=== PATIENT | male | born 1970 | race African-American/Black ===

== ENCOUNTER 2016-10-23 13:18 | Inpatient (IN) | payer OTHER ==
[2016-10-23] MEDS ORDERED: ONDANSETRON 4 MG/2 ML VIAL IVP STA (13:41)
[2016-10-23] MEDS ORDERED: HYDROmorphone 1 MG/ML 1 ML SYRINGE IVP STA ×2 (13:41→16:06)
[2016-10-23] MEDS ORDERED: SODIUM CHLORIDE 0.9% 2,000 ML IV ONE ×2 (13:41→16:06)
--- NOTE | 2016-10-23 13:44 | ED ---
Abdominal Pain HPI - General Chief Complaint: Abdominal Pain Stated Complaint: Abd pain Time Seen by Provider: 10/23/16 13:18 Source: patient, RN notes reviewed Mode of arrival: EMS Limitations: no limitations - History of Present Illness Initial Comments: Is a 46-year-old male with a history of alcohol abuse and pancreatitis has to states he had the onset last night of some ear minutes abdominal pain is sharp in nature with nausea vomiting. He does admit to drinking alcohol recently. He had no diarrhea. No fevers chills or sweats. He is brought in by EMS. He was given IV fentanyl with minimal relief. He states isn't severe 10/10 pain. No other symptoms no dysuria or hematuria. He does state her throwing up all night. MD Complaint: abdominal pain - Related Data Home Medications Medication Instructions Recorded Confirmed No Known Home Medications [No 10/23/16 10/23/16 Known Home Medications] Allergies Allergy/AdvReac Type Severity Reaction Status Date / Time bupropion HCl Allergy Anaphylaxis Verified 10/23/16 14:34 [From Wellbutrin] Review of Systems ROS Statement: Those systems with pertinent positive or pertinent negative responses have been documented in the HPI. ROS Other: All systems not noted in ROS Statement are negative. Past Medical History Past Medical History: No Reported History Additional Past Medical History / Comment(s): chronic pain History of Any Multi-Drug Resistant Organisms: None Reported Past Surgical History: No Surgical Hx Reported Additional Past Surgical History / Comment(s): circumscision at age 20, reconstructive surgery on right knee Past Psychological History: Anxiety, Depression, PTSD Smoking Status: Current every day smoker Past Alcohol Use History: Abuse, Daily Past Drug Use History: None Reported General Exam - General Exam Comments Initial Comments: This is a well-developed well-nourished awake alert anxious appearing male Limitations: no limitations General appearance: alert, anxious, in distress Head exam: Present: atraumatic, normocephalic, normal inspection Eye exam: Present: normal appearance, PERRL, EOMI. Absent: scleral icterus, conjunctival injection, periorbital swelling ENT exam: Present: mucous membranes dry Neck exam: Present: normal inspection. Absent: tenderness, meningismus, lymphadenopathy Respiratory exam: Present: normal lung sounds bilaterally. Absent: respiratory distress, wheezes, rales, rhonchi, stridor Cardiovascular Exam: Present: regular rate, normal rhythm, normal heart sounds. Absent: systolic murmur, diastolic murmur, rubs, gallop, clicks GI/Abdominal exam: Present: soft, tenderness (Positive epigastric tenderness to palpation with some voluntary guarding), normal bowel sounds. Absent: distended , guarding, rebound, rigid, mass, bruit, pulsatile mass, hernia Rectal exam: Present: deferred Extremities exam: Present: normal inspection, full ROM, normal capillary refill. Absent: tenderness, pedal edema, joint swelling, calf tenderness Back exam: Present: normal inspection Neurological exam: Present: alert, oriented X3, CN II-XII intact Psychiatric exam: Present: normal affect, normal mood Skin exam: Present: warm, dry, intact, normal color. Absent: rash Course Vital Signs 10/23/16 10/23/16 10/23/16 13:19 13:57 16:05 Temperature 96.9 F L 97.5 F L Pulse Rate 98 92 107 H Respiratory 22 16 18 Rate Blood Pressure 166/106 179/106 178/114 O2 Sat by Pulse 100 99 99 Oximetry 10/23/16 17:22 Temperature 97.3 F L Pulse Rate 107 H Respiratory 18 Rate Blood Pressure 168/95 O2 Sat by Pulse 98 Oximetry - Reevaluation(s) Reevaluation #1: 10/23/16 17:28 Patient initially did not get much relief from his pain medication he received more pain medication is feeling somewhat better. Medical Decision Making - Medical Decision Making I did discuss findings with the patient. Patient be admitted for evaluation for acute pancreatitis. - Lab Data Result diagrams: 10/23/16 14:25 10/23/16 15:18 Lab Results 10/23/16 10/23/16 10/23/16 Range/Units 14:25 15:18 16:05 WBC 6.1 (3.8-10.6) k/uL RBC 5.39 (4.30-5.90) m/uL Hgb 18.1 H (13.0-17.5) gm/dL Hct 52.9 (39.0-53.0) % MCV 98.3 (80.0-100.0) fL MCH 33.6 (25.0-35.0) pg MCHC 34.1 (31.0-37.0) g/dL RDW 12.1 (11.5-15.5) % Plt Count 135 L (150-450) k/uL Neutrophils % 83 % Lymphocytes % 6 % Monocytes % 8 % Eosinophils % 1 % Basophils % 0 % Neutrophils # 5.1 (1.3-7.7) k/uL Lymphocytes # 0.4 L (1.0-4.8) k/uL Monocytes # 0.5 (0-1.0) k/uL Eosinophils # 0.1 (0-0.7) k/uL Basophils # 0.0 (0-0.2) k/uL Sodium 138 (137-145) mmol/L Potassium 4.8 (3.5-5.1) mmol/L Chloride 105 (98-107) mmol/L Carbon Dioxide 15 L (22-30) mmol/L Anion Gap 18 mmol/L BUN 12 (9-20) mg/dL Creatinine 1.03 (0.66-1.25) mg/dL Est GFR (MDRD) Af Amer >60 (>60 ml/min/1.73 sqM) Est GFR (MDRD) Non-Af >60 (>60 ml/min/1.73 sqM) Glucose 150 H (74-99) mg/dL Calcium 8.8 (8.4-10.2) mg/dL Magnesium 1.6 (1.6-2.3) mg/dL Total Bilirubin 2.2 H (0.2-1.3) mg/dL AST 63 H (17-59) U/L ALT 36 (21-72) U/L Alkaline Phosphatase 72 (38-126) U/L Total Protein 8.9 H (6.3-8.2) g/dL Albumin 5.1 H (3.5-5.0) g/dL Amylase 1089 H* (30-110) U/L Lipase 11059 H (23-300) U/L Urine Color Yellow Urine Appearance Clear (Clear) Urine pH 5.5 (5.0-8.0) Ur Specific [place] 1.009 (1.001-1.035) Urine Protein Trace H (Negative) Urine Glucose (UA) 3+ H (Negative) Urine Ketones 2+ H (Negative) Urine Blood Negative (Negative) Urine Nitrate Negative (Negative) Urine Bilirubin Negative (Negative) Urine Urobilinogen <2.0 (<2.0) mg/dL Ur Leukocyte Esterase Negative (Negative) Serum Alcohol <10 mg/dL - Radiology Data Radiology results: report reviewed (I did review the x-ray and report no acute specific findings), image reviewed Disposition Clinical Impression: Acute pancreatitis, Abdominal pain, Dehydration Disposition: ADMITTED IP TO THIS HOSP Condition: Serious
--- NOTE | 2016-10-23 14:24 | XR ---
EXAMINATION TYPE: XR KUB DATE OF EXAM ORDERED: 10/23/2016 2:21 PM HISTORY: Abdominal pain, nausea and vomiting. COMPARISON: Previous study dated 11/01/2008. FINDINGS: The abdominal gas pattern is within normal limits. There is no evidence of obstruction or free air. No unusual calcifications are seen. IMPRESSION: NO ACUTE INTRA-ABDOMINAL ABNORMALITY.
[2016-10-23 14:54] LABS: Basophils % (A) 0 %; CH 33.6; CHCM 34.4; Eosinophils # (A) 0.1 k/uL (0-0.7); Eosinophils % (A) 1 %; HCT 52.9 % (39.0-53.0); HDW 2.59; HGB 18.1 gm/dL (13.0-17.5); Luc % (Auto) 2; Lymphocytes # (A) 0.4 k/uL (1.0-4.8); Lymphocytes % (A) 6 %; MCH 33.6 pg (25.0-35.0); MCHC 34.1 g/dL (31.0-37.0); MCV 98.3 fL (80.0-100.0); Monocytes # (A) 0.5 k/uL (0-1.0); Monocytes % (A) 8 %; Neutrophils # (A) 5.1 k/uL (1.3-7.7); Neutrophils % (A) 83 %; RBC 5.39 m/uL (4.30-5.90); RDW 12.1 % (11.5-15.5); WBC 6.1 k/uL (3.8-10.6); WBC (Perox) 6.65
[2016-10-23 15:46] LABS: ALT 36 U/L (21-72); AST 63 U/L (17-59); Alcohol <10 mg/dL; Alkaline Phosphatase 72 U/L (38-126); Anion Gap 18 mmol/L; Blood Urea Nitrogen 12 mg/dL (9-20); Calcium 8.8 mg/dL (8.4-10.2); Carbon Dioxide 15 mmol/L (22-30); Chloride 105 mmol/L (98-107); Glucose 150 mg/dL (74-99); Magnesium 1.6 mg/dL (1.6-2.3); Non-African American GFR(MDRD) >60 (>60 ml/min/1.73 sqM); Sodium 138 mmol/L (137-145); Total Bilirubin 2.2 mg/dL (0.2-1.3); Total Protein 8.9 g/dL (6.3-8.2)
[2016-10-23 15:50] LABS: Amylase 1089 U/L (30-110)
[2016-10-23] MEDS ORDERED: LORazepam 2 MG/ML SYRINGE IV STA (16:06)
[2016-10-23 16:17] LABS: Appearance,Urine Clear (Clear); Bilirubin,Urine Negative (Negative); Glucose,Urine (UA) 3+ (Negative); Leukocyte Esterase,Urine Negative (Negative); Nitrite,Urine Negative (Negative); PH, Urine 5.5 (5.0-8.0); Protein,Urine Trace (Negative); Specific Gravity,Urine 1.009 (1.001-1.035); UA Billing (MACRO vs. MICRO) CHEM; Urobilinogen,Urine <2.0 mg/dL (<2.0)
[2016-10-23 16:19] LABS: Potassium 4.8 mmol/L (3.5-5.1)
[2016-10-23 16:34] LABS: Ketones,Urine 2+ (Negative)
[2016-10-23] MEDS ORDERED: NALOXONE 0.4 MG/ML 1 ML VIAL IV PRN (17:29)
[2016-10-23] MEDS ORDERED: LORazepam 2 MG/ML SYRINGE IV PRN ×2 (17:32)
[2016-10-23] MEDS ORDERED: THIAMINE 100 MG/ML 2 ML VIAL IM STA (17:32)
[2016-10-23] MEDS ORDERED: ENALAPRILAT 1.25 MG/ML 1 ML VIAL IVP STA (17:33)
--- NOTE | 2016-10-23 17:36 | ED ---
Medical Decision Making - Lab Data Result diagrams: 10/23/16 14:25 10/23/16 15:18 Lab Results 10/23/16 10/23/16 10/23/16 Range/Units 14:25 15:18 16:05 WBC 6.1 (3.8-10.6) k/uL RBC 5.39 (4.30-5.90) m/uL Hgb 18.1 H (13.0-17.5) gm/dL Hct 52.9 (39.0-53.0) % MCV 98.3 (80.0-100.0) fL MCH 33.6 (25.0-35.0) pg MCHC 34.1 (31.0-37.0) g/dL RDW 12.1 (11.5-15.5) % Plt Count 135 L (150-450) k/uL Neutrophils % 83 % Lymphocytes % 6 % Monocytes % 8 % Eosinophils % 1 % Basophils % 0 % Neutrophils # 5.1 (1.3-7.7) k/uL Lymphocytes # 0.4 L (1.0-4.8) k/uL Monocytes # 0.5 (0-1.0) k/uL Eosinophils # 0.1 (0-0.7) k/uL Basophils # 0.0 (0-0.2) k/uL Sodium 138 (137-145) mmol/L Potassium 4.8 (3.5-5.1) mmol/L Chloride 105 (98-107) mmol/L Carbon Dioxide 15 L (22-30) mmol/L Anion Gap 18 mmol/L BUN 12 (9-20) mg/dL Creatinine 1.03 (0.66-1.25) mg/dL Est GFR (MDRD) Af Amer >60 (>60 ml/min/1.73 sqM) Est GFR (MDRD) Non-Af >60 (>60 ml/min/1.73 sqM) Glucose 150 H (74-99) mg/dL Calcium 8.8 (8.4-10.2) mg/dL Magnesium 1.6 (1.6-2.3) mg/dL Total Bilirubin 2.2 H (0.2-1.3) mg/dL AST 63 H (17-59) U/L ALT 36 (21-72) U/L Alkaline Phosphatase 72 (38-126) U/L Total Protein 8.9 H (6.3-8.2) g/dL Albumin 5.1 H (3.5-5.0) g/dL Amylase 1089 H* (30-110) U/L Lipase 12110 H (23-300) U/L Urine Color Yellow Urine Appearance Clear (Clear) Urine pH 5.5 (5.0-8.0) Ur Specific [place] 1.009 (1.001-1.035) Urine Protein Trace H (Negative) Urine Glucose (UA) 3+ H (Negative) Urine Ketones 2+ H (Negative) Urine Blood Negative (Negative) Urine Nitrate Negative (Negative) Urine Bilirubin Negative (Negative) Urine Urobilinogen <2.0 (<2.0) mg/dL Ur Leukocyte Esterase Negative (Negative) Serum Alcohol <10 mg/dL Disposition Clinical Impression: Acute pancreatitis, Abdominal pain, Dehydration, Hypertension Disposition: ADMITTED IP TO THIS [facility] Condition: Serious Referrals: None,Stated [Primary Care Provider] - 1-2 days
[2016-10-23] MEDS: THIAMINE 100 MG TAB PO SCH (18:16)
[2016-10-23] MEDS: LORazepam 2 MG/ML SYRINGE IV PRN ×2 (18:23→20:48)
[2016-10-23] MEDS: HYDROmorphone 1 MG/ML 1 ML SYRINGE IV PRN ×2 (18:23→22:04)
[2016-10-23] MEDS: SODIUM CHLORIDE 0.9% 1,000 ML IV SCH (18:23)
[2016-10-23] MEDS ORDERED: hydrALAZINE HCL 20 MG/ML 1 ML VIAL IVP PRN (18:35)
[2016-10-23] MEDS: amLODIPine 10 MG TAB PO SCH (18:45)
[2016-10-23] MEDS: METOPROLOL TARTRATE 50 MG TAB PO SCH (20:48)
[2016-10-24] MEDS: HYDROmorphone 1 MG/ML 1 ML SYRINGE IV PRN ×8 (01:04→23:16)
[2016-10-24] MEDS: SODIUM CHLORIDE 0.9% 1,000 ML IV SCH ×3 (01:20→17:13)
[2016-10-24 03:05] LABS: Glucose,Whole Blood 130 mg/dL (75-99)
[2016-10-24] MEDS: hydrALAZINE HCL 20 MG/ML 1 ML VIAL IVP PRN (03:52)
[2016-10-24 07:56] LABS: Glucose,Whole Blood 129 mg/dL (75-99)
[2016-10-24] MEDS: LORazepam 2 MG/ML SYRINGE IV PRN (08:07)
[2016-10-24] MEDS: amLODIPine 10 MG TAB PO SCH (08:07)
[2016-10-24] MEDS: METOPROLOL TARTRATE 50 MG TAB PO SCH ×2 (08:07→20:09)
[2016-10-24 08:37] LABS: CH 33.8; CHCM 34.3; HCT 52.6 % (39.0-53.0); HDW 2.55; HGB 17.7 gm/dL (13.0-17.5); MCH 33.2 pg (25.0-35.0); MCHC 33.5 g/dL (31.0-37.0); MCV 98.9 fL (80.0-100.0); Mean Platelet Volume 9.5; RBC 5.32 m/uL (4.30-5.90); RDW 12.2 % (11.5-15.5); WBC 8.2 k/uL (3.8-10.6)
[2016-10-24 09:08] LABS: ALT 42 U/L (21-72); AST 43 U/L (17-59); Alkaline Phosphatase 59 U/L (38-126); Anion Gap 15 mmol/L; Blood Urea Nitrogen 14 mg/dL (9-20); Calcium 8.8 mg/dL (8.4-10.2); Carbon Dioxide 18 mmol/L (22-30); Chloride 106 mmol/L (98-107); Glucose 136 mg/dL (74-99); Non-African American GFR(MDRD) >60 (>60 ml/min/1.73 sqM); Potassium 4.2 mmol/L (3.5-5.1); Sodium 139 mmol/L (137-145); Total Bilirubin 1.3 mg/dL (0.2-1.3); Total Protein 7.2 g/dL (6.3-8.2)
[2016-10-24 11:00] LABS: Amylase 871 U/L (30-110)
[2016-10-24] MEDS ORDERED: PANTOPRAZOLE 40 MG/10 ML VIAL IVP SCH (12:00)
--- NOTE | 2016-10-24 12:37 | US ---
EXAMINATION TYPE: US gallbladder DATE OF EXAM: 10/24/2016 11:39 AM COMPARISON: 2012 in PACS CLINICAL HISTORY: US. ABD pain, elevated LFT's EXAM MEASUREMENTS: Liver Length: 14.1 cm Gallbladder Wall: 0.5 cm CBD: 0.4 cm Right Kidney: 12.2 x 6.0 x 5.5 cm ANATOMY: Findings: Pancreas: Obscured by bowel gas Liver: Heterogeneous with hyperechoic area at [place]= 3.5 x 2.0 x 2.9 cm Gallbladder: Lumen clear, possible thickened wall with fluid Evidence for sonographic Laguna's sign: No CBD: wnl Right Kidney: wnl Incidental finding of small amount of free fluid scattered throughout ABD IMPRESSION: 1. Ascites. 2. Fatty liver. Normal Values: Liver Length: < 16cm wnl, 17-18cm upper limits, >18cm enlarged Renal Length = 9 - 12cm GB Wall: < 0.3cm CBD: < 0.6cm or < 1.0cm post cholecystectomy
[2016-10-24 13:15] LABS: Hemoglobin A1C 4.9 % (4.2-6.1)
--- NOTE | 2016-10-24 13:54 | HP ---
DATE OF ADMISSION: Patient is a 46-year-old gentleman with alcohol abuse and pancreatitis, came in with symptoms of epigastric abdominal pain, sharp in nature, nonradiating, along with nausea, vomiting, multiple episodes patient does drink every day. He only admits to drinking two 24 ounces of beer, but I believe he drinks more than that. Patient is complaining of 10/10 pain and patient was found to have elevated pancreatic enzymes of 11,998 along with elevated amylase. Patient is admitted for pancreatitis and I started him on Protonix, continuing with IV fluids and patient so far did not have any significant withdrawals as patient is already receiving Ativan and patient was not known to have withdrawals in the past either and patient is tachycardic, probably because of the pain and early stages of withdrawal of, I believe and patient was started on metoprolol. Because of elevated blood pressures, patient was empirically started on amlodipine and IV hydralazine on a p.r.n. basis, which I discontinued, which causes more harm than help. If at all needed, will start him on clonidine or increase the dose of metoprolol as these are good medications for tachycardia and blood pressure in alcohol withdrawal and TSH will be obtained as well. Patient denied any fever, chills. Patient denied any diarrhea, blood in the stools. REVIEW OF SYSTEMS: CONSTITUTIONAL: No fever, no malaise, no fatigue. HEENT: No recent visual problems or hearing problems. Denied any sore throat. CARDIOVASCULAR: No chest pain, orthopnea, PND, no palpitations, no syncope. PULMONARY: No shortness of breath, no cough, no hemoptysis. GASTROINTESTINAL: As described in HPI. NEUROLOGICAL: No headaches, no weakness, no numbness. HEMATOLOGICAL: Denies any bleeding or petechiae. GENITOURINARY: Denies any burning micturition, frequency, or urgency. MUSCULOSKELETAL/RHEUMATOLOGICAL: Denies any joint pain, swelling, or any muscle pain. ENDOCRINE: Denies any polyuria or polydipsia. The rest of the 14 point review of systems is negative. HOME MEDICATIONS: None. ALLERGIES: Allergic to BUPROPION. PAST MEDICAL HISTORY: Significant for apparently hypertension, chronic pain, anxiety, depression, PTSD. Patient does smoke a pack per day. Alcohol abuse history as mentioned above. Denied any drug abuse. PHYSICAL EXAMINATION: VITAL SIGNS: Temperature 97.2, pulse of 120, respiratory rate at 20, blood pressure is 150/98, saturating at 97% on room air. CARDIOVASCULAR: S1 and S2 present. Patient is tachycardic, sinus tachycardia. ABDOMINAL EXAMINATION: Epigastric abdominal tenderness. No rebound or rigidity. Patient's abdomen is distended, mostly tympanic, probably because of constipation and patient will benefit from MiraLax once he is able to take p.o. medications. At this point of time, patient is n.p.o. GENERAL: The patient is alert and oriented x3, not in any acute distress. Well developed, well nourished. HEENT: Pupils are round and equally reacting to light. EOMI. No scleral icterus. No conjunctival pallor. Normocephalic, atraumatic. No pharyngeal erythema. No thyromegaly. PULMONARY: Chest is clear to auscultation, no wheezing or crackles. MUSCULOSKELETAL: No joint swelling or deformity. EXTREMITIES: No cyanosis, clubbing, or pedal edema. NEUROLOGICAL: Gross neurological examination did not reveal any focal deficits. SKIN: No rashes. LABORATORY DATA: CBC, CMP are abnormal for increased amylase and lipase as mentioned above and urine 3+ glucose and 2+ ketones. I will obtain a hemoglobin A1c. I also will obtain an upper abdominal ultrasound to rule out any gallstones. Patient has alcoholic pancreatitis. ASSESSMENT AND PLAN: 1. Alcoholic pancreatitis. IV fluids, n.p.o. as mentioned above and if his symptoms improved tomorrow, patient can be started on oral clear liquid diet. IV fluids will be continued at present rate. 2. Alcoholic gastritis for which patient is on Protonix. 3. Alcohol abuse and alcohol withdrawal. Patient will be Ativan [facility] protocol. Will watch for withdrawals and tachycardia. Patient's tachycardia is secondary to that. 4. Sinus tachycardia, probably due to above-mentioned reasons, that is partly because of alcohol withdrawal as well as pain and, which are being treated at this point of time. Will also obtain TSH although my suspicion is low for pulmonary embolism. 5. Nicotine abuse counseling was provided. 6. Anxiety disorder. 7. Extensive counseling regarding alcohol abuse was provided. Patient may have mild alcoholic hepatitis as well, which is expected to improve with quitting of alcohol. 8. Elevated blood pressures due to alcohol withdrawal. Management as mentioned above.
[2016-10-24] MEDS: THIAMINE 100 MG TAB PO SCH ×2 (15:15→16:44)
[2016-10-24] MEDS: PANTOPRAZOLE 40 MG/10 ML VIAL IVP SCH ×2 (20:09→21:41)
[2016-10-25] MEDS: SODIUM CHLORIDE 0.9% 1,000 ML IV SCH ×3 (01:42→15:35)
[2016-10-25] MEDS: HYDROmorphone 1 MG/ML 1 ML SYRINGE IV PRN ×3 (02:01→11:09)
[2016-10-25] MEDS: LORazepam 2 MG/ML SYRINGE IV PRN ×5 (03:04→23:58)
[2016-10-25] MEDS: PANTOPRAZOLE 40 MG/10 ML VIAL IVP SCH ×2 (08:56→20:05)
[2016-10-25] MEDS: METOPROLOL TARTRATE 50 MG TAB PO SCH ×2 (08:56→20:11)
[2016-10-25 09:12] LABS: CH 33.7; CHCM 33.7; HCT 46.8 % (39.0-53.0); HDW 2.41; HGB 15.1 gm/dL (13.0-17.5); MCH 32.6 pg (25.0-35.0); MCHC 32.4 g/dL (31.0-37.0); MCV 100.6 fL (80.0-100.0); Mean Platelet Volume 10.3; RBC 4.65 m/uL (4.30-5.90); RDW 12.3 % (11.5-15.5); WBC 4.4 k/uL (3.8-10.6)
[2016-10-25 09:35] LABS: ALT 33 U/L (21-72); AST 28 U/L (17-59); Alkaline Phosphatase 56 U/L (38-126); Anion Gap 15 mmol/L; Blood Urea Nitrogen 26 mg/dL (9-20); Carbon Dioxide 21 mmol/L (22-30); Chloride 106 mmol/L (98-107); Glucose 123 mg/dL (74-99); Non-African American GFR(MDRD) >60 (>60 ml/min/1.73 sqM); Sodium 142 mmol/L (137-145); Total Bilirubin 2.3 mg/dL (0.2-1.3); Total Protein 6.9 g/dL (6.3-8.2)
[2016-10-25] MEDS: THIAMINE 100 MG TAB PO SCH ×2 (11:11→17:09)
[2016-10-25] MEDS: hydrALAZINE HCL 20 MG/ML 1 ML VIAL IVP PRN (11:11)
[2016-10-25 11:41] VITALS: BMI 30.8
[2016-10-25] MEDS: HYDROcodone/APAP 7.5-325MG 1 EACH TAB PO PRN ×2 (14:11→20:06)
--- NOTE | 2016-10-25 21:17 | PN ---
A 46-year-old admitted for alcoholic pancreatitis. Patient's symptoms did improve minimally. I will switch him to oral [place] and the patient's lipase is 3300 now and the patient will be started on clear liquid diet. We will see if he tolerates this. If he tolerates, the patient's diet will be advanced. Otherwise, he will be made n.p.o. again. The patient continues to be tachycardic. Increased the dose of metoprolol to 75 b.i.d. TSH is essentially within normal limits. REVIEW OF SYSTEMS: CARDIOVASCULAR: No chest pain, no orthopnea, no PND, no palpitations. PULMONARY: Denied any shortness of breath. No cough or hemoptysis. GASTROINTESTINAL: Continued to have minimal abdominal pain, improved compared to yesterday. NEUROLOGIC: No headaches, no weakness, no numbness. Medications were reviewed and medication changes are as mentioned above. PHYSICAL EXAMINATION: VITAL SIGNS: Temperature afebrile, pulse of around 112, respiratory rate of 16, blood pressure is 140/70, saturating at 97% on room air. GENERAL: The patient is alert and oriented x3, not in any acute distress. Well developed, well nourished. HEENT: Pupils are round and equally reacting to light. EOMI. No scleral icterus. No conjunctival pallor. Normocephalic, atraumatic. No pharyngeal erythema. No thyromegaly. CARDIOVASCULAR: S1 and S2 present. No murmurs, rubs, or gallops. PULMONARY: Chest is clear to auscultation, no wheezing or crackles. ABDOMEN: Soft, nontender, nondistended, normoactive bowel sounds. No palpable organomegaly. MUSCULOSKELETAL: No joint swelling or deformity. EXTREMITIES: No cyanosis, clubbing, or pedal edema. NEUROLOGICAL: Gross neurological examination did not reveal any focal deficits. SKIN: No rashes. FINAL DIAGNOSES: 1. Alcoholic pancreatitis. Continue with IV fluids and start him on clear liquid diet, switch his medications to clear liquid diet. 2. Tachycardia, probable related to alcohol withdrawal. I do not the patient has ( ), which is essentially within normal limits and metoprolol dose has been increased to 75 twice a day. 3. Alcohol abuse with alcohol withdrawal. Patient does not have significant withdrawals. Continue with Ativan, [facility] Withdrawal Assessment for Alcohol protocol. 4. Nicotine abuse counseling was provided. 5. Anxiety disorder.
[2016-10-25] MEDS: ONDANSETRON 4 MG/2 ML VIAL IVP PRN (21:29)
[2016-10-26] MEDS: SODIUM CHLORIDE 0.9% 1,000 ML IV SCH ×3 (01:53→14:56)
[2016-10-26] MEDS: ONDANSETRON 4 MG/2 ML VIAL IVP PRN (07:42)
[2016-10-26] MEDS: HYDROcodone/APAP 7.5-325MG 1 EACH TAB PO PRN ×3 (07:49→21:26)
[2016-10-26] MEDS: PANTOPRAZOLE 40 MG/10 ML VIAL IVP SCH ×2 (07:49→21:26)
[2016-10-26] MEDS: METOPROLOL TARTRATE 50 MG TAB PO SCH ×2 (07:49→21:25)
[2016-10-26] MEDS: hydrALAZINE HCL 20 MG/ML 1 ML VIAL IVP PRN ×2 (08:51→14:55)
[2016-10-26] MEDS: THIAMINE 100 MG TAB PO SCH ×2 (13:24→17:54)
[2016-10-26] MEDS ORDERED: RX INFO: IV CONTRAST WAS GIVEN 1 EACH MISC MISCELLANE PRN (15:56)
--- NOTE | 2016-10-26 17:08 | PN ---
Patient is admitted for alcohol pancreatitis. Symptoms are improving. Patient will advance the diet today and patient is still tachycardic. I will obtain a d-dimer. If it is elevated I will go ahead and get a CT of the chest to rule out any pulmonary embolism. REVIEW OF SYSTEMS: CARDIOVASCULAR: No chest pain, no orthopnea, no PND, no palpitations. PULMONARY: Denied any shortness of breath. No cough or hemoptysis. GASTROINTESTINAL: No diarrhea, nausea or vomiting. No abdominal pain. Normoactive bowel sounds. NEUROLOGIC: No headaches, no weakness, no numbness. Medications are reviewed. PHYSICAL EXAMINATION: VITAL SIGNS: Temperature 97.7, pulse of 123, respiratory rate of 18, blood pressure is 144/110, saturating at 99% on room air. GENERAL: The patient is alert and oriented x3, not in any acute distress. Well developed, well nourished. HEENT: Pupils are round and equally reacting to light. EOMI. No scleral icterus. No conjunctival pallor. Normocephalic, atraumatic. No pharyngeal erythema. No thyromegaly. CARDIOVASCULAR: S1 and S2 present. Patient continues to be tachycardic. No murmurs, rubs, or gallops are appreciated. PULMONARY: Chest is clear to auscultation, no wheezing or crackles. ABDOMEN: Soft, nontender, nondistended, normoactive bowel sounds. No palpable organomegaly. MUSCULOSKELETAL: No joint swelling or deformity. EXTREMITIES: No cyanosis, clubbing, or pedal edema. NEUROLOGICAL: Gross neurological examination did not reveal any focal deficits. SKIN: No rashes. LABORATORY DATA: CBC, CMP are abnormal for mildly elevated creatinine of 1.08, BUN of 26. Lipase is 3174. ASSESSMENT AND PLAN: 1. Alcoholic pancreatitis, improving at this point of time. Patient's diet will be advanced. 2. Tachycardia due to the above mentioned reasons. TSH is essentially within normal limits. 3. Alcohol abuse and alcohol withdrawal. Withdrawals are improving. Patient is not requiring Ativan frequently. 4. Nicotine abuse. 5. Anxiety disorder.
--- NOTE | 2016-10-26 18:16 | CT ---
EXAMINATION TYPE: CT chest angio for PE DATE OF EXAM: 10/26/2016 5:08 PM COMPARISON: NONE HISTORY: Patient poor historian. Patient has elevated D-Dimer lab results. CT DLP: 228.6 mGycm Automated exposure control for dose reduction was used. CONTRAST: CTA Chest for pulmonary embolism performed with with IV Contrast, patient injected with 100 mL of Omn ipaque 350. MIP images are created on CT scanner and reviewed. FINDINGS: LUNGS: Exam is suboptimal as there is significant respiratory motion artifact limiting evaluation for subcentimeter nodularity. There is small left pleural effusion. There is tiny right pleural effusion . There is associated compressive atelectasis in both lung bases. More focal consolidation and/or ate lectasis in the lingula is present inferiorly. Additional consolidation in the left lower lobe is dif ficult to exclude versus atelectatic change. No pneumothorax is present bilaterally. MEDIASTINUM: There is suboptimal bolus with heterogeneity, there is no large central pulmonary emboli sm, smaller segmental and subsegmental PE cannot be excluded on this exam. There are prominent borde rline lymph nodes in the prevascular space. No pericardial effusion is seen. Heart size is upper li mits of normal. There is mild to moderate left ventricular dilatation noted. OTHER: There is small amount of ascites along superior lateral margin of the liver. Small degree of bilateral gynecomastia is noted. IMPRESSION: 1. Suboptimal study without large central pulmonary embolism, smaller segmental and subsegmental PE c annot be excluded on this exam. 2. There are small left greater than right pleural effusions. There is associated atelectatic change. There is slightly more prominent atelectasis and/or consolidation in the lingula and left lower lobe in which multifocal infectious process cannot be noted. Clinical correlation is advised.
[2016-10-26] MEDS ORDERED: HEPARIN SODIUM,PORCINE 10,000 UNIT/ML 1 ML VIAL IV ONE (22:48)
[2016-10-26] MEDS ORDERED: HEPARIN SODIUM,PORCINE 5,000 UNIT/ML 1 ML VIAL IV PRN (22:48)
[2016-10-27 00:17] LABS: Aty Lym Flag Slight; CH 33.9; CHCM 33.5; HCT 42.4 % (39.0-53.0); HDW 2.47; HGB 14.2 gm/dL (13.0-17.5); MCH 34.1 pg (25.0-35.0); MCHC 33.5 g/dL (31.0-37.0); MCV 101.6 fL (80.0-100.0); Mean Platelet Volume 8.6; RBC 4.17 m/uL (4.30-5.90); RDW 12.1 % (11.5-15.5); WBC 2.1 k/uL (3.8-10.6); WBC (Perox) 2.06
[2016-10-27 00:40] LABS: Add Differential Manual Differential
[2016-10-27 00:44] LABS: Manual Review Performed; Nucleated Red Blood Cells 0 /100 WBC (0-0); Total Cells Counted 100
[2016-10-27] MEDS: HEPARIN SODIUM,PORCINE/D5W PMX 25,000 UNIT in DEXTROSE/WATER 1 500ML.BAG IV SCH ×2 (01:06→14:07)
[2016-10-27] MEDS: SODIUM CHLORIDE 0.9% 1,000 ML IV SCH ×2 (05:31→17:36)
[2016-10-27] MEDS: PANTOPRAZOLE 40 MG/10 ML VIAL IVP SCH ×2 (08:19→20:44)
[2016-10-27] MEDS: METOPROLOL TARTRATE 50 MG TAB PO SCH ×2 (08:19→20:45)
[2016-10-27] MEDS: HYDROcodone/APAP 7.5-325MG 1 EACH TAB PO PRN ×3 (08:22→20:45)
[2016-10-27 08:29] LABS: CH 33.8; CHCM 34.1; HCT 42.5 % (39.0-53.0); HDW 2.54; MCHC 33.1 g/dL (31.0-37.0); MCV 99.8 fL (80.0-100.0); RBC 4.26 m/uL (4.30-5.90); WBC 2.8 k/uL (3.8-10.6)
[2016-10-27 08:39] LABS: Anion Gap 12 mmol/L; Calcium 8.8 mg/dL (8.4-10.2); Carbon Dioxide 20 mmol/L (22-30); Chloride 104 mmol/L (98-107); Glucose 108 mg/dL (74-99); Non-African American GFR(MDRD) >60 (>60 ml/min/1.73 sqM); Sodium 136 mmol/L (137-145)
[2016-10-27 08:42] LABS: Blood Urea Nitrogen 14 mg/dL (9-20); Potassium 3.5 mmol/L (3.5-5.1)
[2016-10-27] MEDS: THIAMINE 100 MG TAB PO SCH ×2 (13:05→17:36)
[2016-10-27] MEDS ORDERED: LACTULOSE 20 GM/30 ML CUP PO ONE (14:03)
--- NOTE | 2016-10-27 14:35 | P.CNPUL ---
History of Present Illness Consult date: 10/27/16 Reason for consult: pleural effusion, abnormal CXR/CT Chief complaint: Abnormal chest x-ray History of present illness: This is a 46-year-old black male who was admitted on October 23. He has a history of chronic alcohol abuse and came into the emergency department with epigastric abdominal pain and was diagnosed as having acute pancreatitis. Most of the history today is obtained from the medical records. He is not a row good historian but is able to give me some history. Currently the patient apparently had a recent chest x-ray or CAT scan which showed some abnormalities and I was consulted for that reason. His primary complaints included epigastric pain. He really denies any other complaints of any chest discomfort shortness breath difficulty breathing coughing wheezing phlegm production. The chest x-ray and CAT scan suggested possible infiltrates at the lung bases left greater than right and also left greater than right pleural effusions. These may be sympathetic changes secondary to the acute pancreatitis. Again the patient really does not have much in the way of any or any pulmonary complaints. His past medical history is positive for essential hypertension chronic pain syndrome anxiety/depression improved posttraumatic stress disorder. He does abuse alcohol as mentioned above and does smoke about a pack a day. Denies any illicit drug use. Review of Systems 12 point review of system is essentially only positive for epigastric discomfort which is improved since he been here in the hospital. He denies any pulmonary complaints. Cough phlegm production shortness of breath or any other complaints for that matter. When I first went into the room he was lying flat in bed. Not wearing any oxygen therapy. No respiratory issues at all. Past Medical History Past Medical History: No Reported History, Hypertension Additional Past Medical History / Comment(s): chronic pain History of Any Multi-Drug Resistant Organisms: None Reported Past Surgical History: No Surgical Hx Reported Additional Past Surgical History / Comment(s): circumscision at age 20, reconstructive surgery on right knee Past Psychological History: Anxiety, Depression, PTSD Smoking Status: Current every day smoker Past Alcohol Use History: Abuse, Daily Past Drug Use History: None Reported Medications and Allergies Home Medications Medication Instructions Recorded Confirmed Type No Known Home Medications [No 10/23/16 10/23/16 History Known Home Medications] Allergies Allergy/AdvReac Type Severity Reaction Status Date / Time bupropion HCl Allergy Anaphylaxis Verified 10/23/16 14:34 [From Wellbutrin] Physical Exam Osteopathic Statement: *. No significant issues noted on an osteopathic structural exam other than those noted in the History and Physical/Consult. Vitals: Vital Signs Temp Pulse Pulse Resp BP Pulse Ox 10/27/16 10:51 108 H 159/100 10/27/16 07:00 98.7 F 112 H 18 158/113 97 10/27/16 03:02 110 H 148/92 10/26/16 23:00 99.6 F 107 H 18 152/89 95 10/26/16 21:24 130 H 168/101 10/26/16 17:31 144/96 10/26/16 15:00 96.8 F L 114 H 20 158/101 98 Intake and Output 10/26/16 10/27/16 10/27/16 22:59 06:59 14:59 Output Total 475 650 Balance -475 -650 Output: Urine 475 650 Other: Voiding Method Urinal No acute distress, oriented 3. Membranes are moist. Supple. Full range of motion. No adenopathy. Cardiovascular examination reveals regular rhythm rate. S1-S2 normal. Scattered mild basilar rhonchi. No dullness. No wheezes. No crackles. Breath sounds are otherwise clear. Abdomen is soft. There is some mild epigastric tenderness. Extremities are intact. Results - Laboratory Findings CBC and BMP: 10/27/16 08:13 10/27/16 08:13 PT/INR, D-dimer D-Dimer 27.73 mg/L FEU (<0.60) H 10/26/16 15:02 Abnormal lab findings: Abnormal Labs 10/24/16 10/24/16 10/24/16 03:02 07:54 08:24 WBC RBC Hgb MCV Plt Count Neutrophils # (Manual) Lymphocytes # (Manual) APTT D-Dimer Sodium Carbon Dioxide 18 L BUN Glucose 136 H POC Glucose (mg/dL) 130 H 129 H Plasma Lactic Acid Duran Total Bilirubin Amylase Lipase 10/24/16 10/24/16 10/25/16 08:24 08:24 08:25 WBC RBC Hgb 17.7 H MCV 100.6 H Plt Count 137 L 103 L Neutrophils # (Manual) Lymphocytes # (Manual) APTT D-Dimer Sodium Carbon Dioxide BUN Glucose POC Glucose (mg/dL) Plasma Lactic Acid Duran Total Bilirubin Amylase 871 H* Lipase 8756 H 10/25/16 10/26/16 10/26/16 08:25 15:02 23:56 WBC 2.1 L RBC 4.17 L Hgb MCV 101.6 H Plt Count 116 L Neutrophils # (Manual) 1.1 L Lymphocytes # (Manual) 0.5 L APTT D-Dimer 27.73 H Sodium Carbon Dioxide 21 L BUN 26 H Glucose 123 H POC Glucose (mg/dL) Plasma Lactic Acid Duran Total Bilirubin 2.3 H Amylase Lipase 3174 H 10/27/16 10/27/16 10/27/16 08:13 08:13 08:13 WBC 2.8 L RBC 4.26 L Hgb MCV Plt Count 133 L Neutrophils # (Manual) Lymphocytes # (Manual) APTT 55.1 H D-Dimer Sodium 136 L Carbon Dioxide 20 L BUN Glucose 108 H POC Glucose (mg/dL) Plasma Lactic Acid Duran Total Bilirubin Amylase Lipase 762 H 10/27/16 08:13 WBC RBC Hgb MCV Plt Count Neutrophils # (Manual) Lymphocytes # (Manual) APTT D-Dimer Sodium Carbon Dioxide BUN Glucose POC Glucose (mg/dL) Plasma Lactic Acid Duran 0.6 L Total Bilirubin Amylase Lipase - Diagnostic Findings Chest x-ray: image reviewed CT scan - chest: image reviewed (X-rays and other scans are evaluated.) Assessment and Plan (1) Pleural effusion Status: Acute (2) Mild basilar atelectasis of both lungs Status: Acute (3) Abdominal pain Status: Acute (4) Acute pancreatitis Status: Acute (5) Dehydration Status: Acute (6) Hypertension Status: Acute Plan: Plan At this time the patient is not really having any pulmonary complaints. I don' t suspect he has pneumonia. I suspect because of the intra-abdominal process, i.e. acute pancreatitis, the patient has some bibasilar atelectasis left greater than right and bibasilar pleural effusions, left greater than right. This is typically a sympathetic effusion caused by the acute pancreatitis. As a pancreatitis resolves, the pulmonary changes should resolve as well. We'll continue to follow. No additional recommendations are made. Time with Patient: Greater than 30
--- NOTE | 2016-10-27 15:03 | XR ---
EXAMINATION TYPE: XR abdomen complete w decub DATE OF EXAM: 10/27/2016 2:39 PM COMPARISON: 10/23/2016 HISTORY: Abdominal pain and constipation TECHNIQUE: Single view of the chest and 2 views of the abdomen are submitted. FINDINGS: There are multiple dilated air and fluid-filled loops of small bowel in the midabdomen. There is some gas in the right colon and transverse colon. I see no evidence of pneumoperitoneum. There is slight blunting of the costophrenic angles. CONCLUSION: Compared to last exam there is no multiple loops of dilated small bowel suggestive of a mechanical sm all bowel obstruction or severe ileus. There is some thumbprinting that suggests small bowel edema. F ollow-up is recommended.
[2016-10-27] MEDS: HEPARIN SODIUM,PORCINE 5,000 UNIT/ML 1 ML VIAL SQ SCH (23:49)
[2016-10-28] MEDS: SODIUM CHLORIDE 0.9% 1,000 ML IV SCH ×2 (05:13→20:40)
[2016-10-28] MEDS: HEPARIN SODIUM,PORCINE 5,000 UNIT/ML 1 ML VIAL SQ SCH ×2 (08:12→16:05)
[2016-10-28] MEDS: METOPROLOL TARTRATE 50 MG TAB PO SCH (08:12)
[2016-10-28] MEDS: PANTOPRAZOLE 40 MG/10 ML VIAL IVP SCH ×2 (08:12→20:40)
[2016-10-28] MEDS: HYDROcodone/APAP 7.5-325MG 1 EACH TAB PO PRN ×3 (08:17→20:40)
[2016-10-28] MEDS: THIAMINE 100 MG TAB PO SCH ×2 (12:29→16:05)
--- NOTE | 2016-10-28 12:36 | PN ---
Patient is admitted with alcoholic pancreatitis which has improved but patient has abdominal distension, because of which I obtained an abdominal x-ray which did show significant ileus. Patient has uncontrolled tachycardia in spite of high dose of metoprolol. We did a CT of the chest to rule out pulmonary embolism. I did not show any evidence of pulmonary embolism and because of that, I discontinued heparin. I believe Pulmonary was consulted by the on-call covering physician. Patient does have minimal left-sided pleural effusion which is related to pancreatitis first day and patient will need to remain n.p.o. because of the ileus and if the patient become nauseous, may need NG tube at that time for bowel ( ) and bowel decompression and will use rectal Docusate for constipation and ileus. REVIEW OF SYSTEMS: CARDIOVASCULAR: No chest pain, no orthopnea, no PND, no palpitations. PULMONARY: Denied any shortness of breath. No cough or hemoptysis. GASTROINTESTINAL: As described in HPI. NEUROLOGIC: No headaches, no weakness, no numbness. Medications were reviewed. PHYSICAL EXAMINATION: VITAL SIGNS: Temperature 98.7, pulse of 103, respiratory rate of 18, blood pressure is 160/102, saturating at 96% on room air. ABDOMINAL EXAMINATION: Abdomen is significantly distended, no rebound or rigidity. Patient's abdomen is tympanic secondary to constipation, ileus. GENERAL: The patient is alert and oriented x3, not in any acute distress. Well developed, well nourished. HEENT: Pupils are round and equally reacting to light. EOMI. No scleral icterus. No conjunctival pallor. Normocephalic, atraumatic. No pharyngeal erythema. No thyromegaly. CARDIOVASCULAR: S1 and S2 present. No murmurs, rubs, or gallops. PULMONARY: Chest is clear to auscultation, no wheezing or crackles. MUSCULOSKELETAL: No joint swelling or deformity. EXTREMITIES: No cyanosis, clubbing, or pedal edema. NEUROLOGICAL: Gross neurological examination did not reveal any focal deficits. SKIN: No rashes. ASSESSMENT AND PLAN: 1. Acute pancreatitis, alcoholic pancreatitis. 2. Alcohol withdrawals, resolved. 3. Ileus secondary to ( ). 4. Tachycardia may be related to pancreatitis itself. 5. Rule out pulmonary embolism. Patient will not require any IV heparin, which was discontinued. 6. Nicotine abuse. 7. Anxiety disorder. 8. Left-sided pleural effusion, secondary to pancreatitis. No further intervention is necessary at this point of time and patient does not have any significant evidence of pneumonia on the CT and will not require any antibiotics at this point of time.
--- NOTE | 2016-10-28 14:27 | P.PN ---
Subjective This is a 46-year-old black male who was admitted on October 23. He has a history of chronic alcohol abuse and came into the emergency department with epigastric abdominal pain and was diagnosed as having acute pancreatitis. Currently the patient apparently had a recent chest x-ray or CAT scan which showed some abnormalities and I was consulted for that reason. His primary complaints included epigastric pain. He really denies any other complaints of any chest discomfort shortness breath difficulty breathing coughing wheezing phlegm production. The chest x-ray and CAT scan suggested possible infiltrates at the lung bases left greater than right and also left greater than right pleural effusions. These may be sympathetic changes secondary to the acute pancreatitis. Again the patient really does not have much in the way of any or any pulmonary complaints. His past medical history is positive for essential hypertension chronic pain syndrome anxiety/depression improved posttraumatic stress disorder. He does abuse alcohol as mentioned above and does smoke about a pack a day. Denies any illicit drug use. On 10/28/2016 the patient is being seen in follow-up. His abdominal pain has subsided. His lipase levels are dropping. He is not having any major stroke difficulties. His resting comfortably in bed. No cough or sputum production. No chest tightness or wheezing. I reviewed his CAT scan of the chest and there is small bilateral pleural effusion and atelectatic changes in lung bases which is probably related to his acute pancreatitis. His ultrasound of the abdomen was also done and showed some small ascites and fatty liver. Objective - Vital Signs Vital signs: Vital Signs Temp 98.7 F 10/28/16 07:00 Pulse 99 10/28/16 07:00 Resp 20 10/28/16 07:00 BP 172/112 10/28/16 09:18 Pulse Ox 98 10/28/16 07:00 Intake & Output 10/27/16 10/28/16 10/28/16 18:59 06:59 18:59 Intake Total 500 650 Output Total 1300 1600 Balance -800 -950 Intake: Oral 500 650 Output: Urine 1300 1600 Other: # Voids 1 # Bowel Movements 1 - Exam The patient appeared well nourished and normally developed. Vital signs as documented. Head exam is unremarkable. No scleral icterus or corneal arcus noted. Neck is without jugular venous distension, thyromegaly, or carotid bruits. Carotid upstrokes are brisk bilaterally. Sounds are diminished in lung bases bilaterally.. Cardiac exam reveals the PMI to be normally sized and situated. Rhythm is regular. First and second heart sounds normal. No murmurs, rubs or gallops. Abdominal exam reveals normal bowel sounds, no masses, no organomegaly and no aortic enlargement. Extremities are nonedematous and both femoral and pedal pulses are normal. - Labs CBC & Chem 7: 10/27/16 08:13 10/27/16 08:13 Assessment and Plan Plan: Assessment and Plan (1) Pleural effusion Status: Acute (2) Mild basilar atelectasis of both lungs Status: Acute (3) Abdominal pain Status: Acute (4) Acute pancreatitis Status: Acute (5) Dehydration Status: Acute (6) Hypertension Status: Acute Plan The patient was reassured. No need for anticoagulation. Encourage deep breathing and using incentive spirometer. We'll advance diet as tolerated. His abdominal pain has subsided and he is acute pancreatitis is slowly recovering. Her BS also to ambulate. We'll continue to follow and see the patient has needed. We'll evidence of any acute pneumonia at this point.
[2016-10-28] MEDS: CARVEDILOL 12.5 MG TAB PO SCH (17:49)
--- NOTE | 2016-10-28 21:01 | PN ---
The patient is admitted to the hospital with alcoholic pancreatitis which improved. We are treating ileus at this point of time. Patient is clinically doing well. Patient did move his bowel yesterday. Patient appears to have clonidine withdrawal tachycardia. REVIEW OF SYSTEMS: CARDIOVASCULAR: No chest pain, no orthopnea, no PND, no palpitations. PULMONARY: Denied any shortness of breath. No cough or hemoptysis. GASTROINTESTINAL: Continued minimal abdominal pain although significant improvement in distention. NEUROLOGIC: No headaches, no weakness, no numbness. Medications were reviewed. PHYSICAL EXAMINATION: VITAL SIGNS: Temperature 98.0, pulse of 91, respiratory rate 18, blood pressure is 150/98, saturating at 95% room air. GENERAL: The patient is alert and oriented x3, not in any acute distress. Well developed, well nourished. HEENT: Pupils are round and equally reacting to light. EOMI. No scleral icterus. No conjunctival pallor. Normocephalic, atraumatic. No pharyngeal erythema. No thyromegaly. CARDIOVASCULAR: S1 and S2 present. No murmurs, rubs, or gallops. PULMONARY: Chest is clear to auscultation, no wheezing or crackles. ABDOMEN: The patient abdomen distention significantly improved. Patient abdomen is not tympanic anymore and patient does have fairly good bowel sounds at this point of time. MUSCULOSKELETAL: No joint swelling or deformity. EXTREMITIES: No cyanosis, clubbing, or pedal edema. NEUROLOGICAL: Gross neurological examination did not reveal any focal deficits. SKIN: No rashes. LABORATORY DATA: CBC, basic metabolic profile no significant abnormality was appreciated. ASSESSMENT AND PLAN: 1. Acute pancreatitis, the patient has alcoholic pancreatitis, alcoholic withdrawals resolved. 2. Ileus secondary to opiates, which improved. 3. Tachycardia related to clonidine withdrawal which improved at this point of time with beta joy. 4. Nicotine abuse history. 5. Anxiety disorder. 6. Left ( ) sided pleural effusions secondary to pancreatitis.
[2016-10-29] MEDS: HEPARIN SODIUM,PORCINE 5,000 UNIT/ML 1 ML VIAL SQ SCH ×2 (00:26→07:48)
[2016-10-29 00:47] VITALS: TEMP 98.7
[2016-10-29] MEDS: HYDROcodone/APAP 7.5-325MG 1 EACH TAB PO PRN (03:34)
[2016-10-29] MEDS: PANTOPRAZOLE 40 MG/10 ML VIAL IVP SCH (07:45)
[2016-10-29] MEDS: CARVEDILOL 12.5 MG TAB PO SCH (07:48)
[2016-10-29] MEDS ORDERED: PANTOPRAZOLE 40 MG TABLET PO SCH (08:00)
[2016-10-29 08:33] VITALS: BP 154/78; PULSE 91; RESP 21
--- NOTE | 2016-10-29 10:42 | P.PN ---
Subjective This is a 46-year-old black male who was admitted on October 23. He has a history of chronic alcohol abuse and came into the emergency department with epigastric abdominal pain and was diagnosed as having acute pancreatitis. Currently the patient apparently had a recent chest x-ray or CAT scan which showed some abnormalities and I was consulted for that reason. His primary complaints included epigastric pain. He really denies any other complaints of any chest discomfort shortness breath difficulty breathing coughing wheezing phlegm production. The chest x-ray and CAT scan suggested possible infiltrates at the lung bases left greater than right and also left greater than right pleural effusions. These may be sympathetic changes secondary to the acute pancreatitis. Again the patient really does not have much in the way of any or any pulmonary complaints. His past medical history is positive for essential hypertension chronic pain syndrome anxiety/depression improved posttraumatic stress disorder. He does abuse alcohol as mentioned above and does smoke about a pack a day. Denies any illicit drug use. On 10/28/2016 the patient is being seen in follow-up. His abdominal pain has subsided. His lipase levels are dropping. He is not having any major stroke difficulties. His resting comfortably in bed. No cough or sputum production. No chest tightness or wheezing. I reviewed his CAT scan of the chest and there is small bilateral pleural effusion and atelectatic changes in lung bases which is probably related to his acute pancreatitis. His ultrasound of the abdomen was also done and showed some small ascites and fatty liver. On 10/29/2016, the patient is doing very well. He is tolerating clear liquid diet. No major abdominal pain. Abdomen is quite soft and not distended. No major respiratory distress. No cough or sputum production. His emanating in the hallway. The plan is to discharge this patient home today. No other significant events overnight. Objective - Vital Signs Vital signs: Vital Signs Temp 98.7 F 10/29/16 07:00 Pulse 91 10/29/16 08:00 Resp 21 10/29/16 08:00 BP 154/78 10/29/16 07:00 Pulse Ox 98 10/29/16 07:00 Intake & Output 10/28/16 10/29/16 10/29/16 18:59 06:59 18:59 Intake Total 930 Output Total 900 Balance 30 Intake: Oral 930 Output: Urine 900 Other: Voiding Method Urinal # Voids 2 - Exam The patient appeared well nourished and normally developed. Vital signs as documented. Head exam is unremarkable. No scleral icterus or corneal arcus noted. Neck is without jugular venous distension, thyromegaly, or carotid bruits. Carotid upstrokes are brisk bilaterally. Sounds are diminished in lung bases bilaterally.. Cardiac exam reveals the PMI to be normally sized and situated. Rhythm is regular. First and second heart sounds normal. No murmurs, rubs or gallops. Abdominal exam reveals normal bowel sounds, no masses, no organomegaly and no aortic enlargement. Extremities are nonedematous and both femoral and pedal pulses are normal. - Labs CBC & Chem 7: 10/27/16 08:13 10/27/16 08:13 Assessment and Plan Plan: Assessment and Plan (1) Pleural effusion Status: Acute (2) Mild basilar atelectasis of both lungs Status: Acute (3) Abdominal pain Status: Acute (4) Acute pancreatitis Status: Acute (5) Dehydration Status: Acute (6) Hypertension Status: Acute Plan The patient was reassured. Patient is doing well. Ambulate this patient.. Active pulmonary issues and we will sign off the case. Consider discharge if cleared by
[2016-10-29] MEDS: SODIUM CHLORIDE 0.9% 1,000 ML IV SCH (13:11)
[2016-10-29] MEDS: THIAMINE 100 MG TAB PO SCH (13:19)
--- NOTE | 2016-10-30 07:31 | DS ---
DATE OF ADMISSION: 10/23/2016 DATE OF DISCHARGE: 10/29/2016 The patient was admitted with alcoholic pancreatitis, which improved. The patient had post pancreatitis ileus, which improved as well. Patient's clonidine was discontinued and patient was having a lot of side effects from that. The patient was put on Coreg and patient is being discharged on Coreg. Hydrocodone acetaminophen, omeprazole and thiamine. The patient was also treated for acute alcohol intoxication and alcohol withdrawals. Patient is clinically doing well. Patient did move his bowels. Patient is being discharged today in stable medical condition to home. Patient was ruled out pulmonary embolism as well. FINAL DIAGNOSES: 1. Acute pancreatitis. Patient had alcoholic pancreatitis severe secondary ( ), which improved. 2. Tachycardia due to clonidine withdrawal. 3. Nicotine abuse history. 4. Anxiety disorder. 5. Right-sided pleural effusion due to pancreatitis. Patient will discharged today in stable medical condition to home. Activity as tolerated. Cardiac diet. Nicotine cessation and alcohol cessation counseling were provided. Patient will follow with Dr. Fagan on 06 of November at 1:40. Please refer to my depart summary for further details of discharge medications. I spent greater than 35 minutes in total discharge process.
[2016-10-30] MEDS ORDERED: METOPROLOL TARTRATE 5 MG/5 ML VIAL IVP ONE (17:33)
== END 2016-10-29 14:52 | disposition home or self-care (01) | DRG 439 ==
LOC: EC 13:18 → 4MS4W 17:29
PROVIDERS: ADMIT Internal Medicine; ATTEND Internal Medicine
PROC: HZ2ZZZZ Detoxification Services for Substance Abuse Treatment (ICD-10-PCS; principal; 2016-10-23)
DX: K85.20 Alcohol induced acute pancreatitis without necrosis or infection (principal); J90 Pleural effusion, not elsewhere classified; K76.0 Fatty (change of) liver, not elsewhere classified; J98.11 Atelectasis; K56.7 Ileus, unspecified; F10.239 Alcohol dependence with withdrawal, unspecified; I10 Essential (primary) hypertension; E86.0 Dehydration; F10.229 Alcohol dependence with intoxication, unspecified; T40.605A Adverse effect of unspecified narcotics, initial encounter; T46.5X5A Adverse effect of other antihypertensive drugs, initial encounter; R00.0 Tachycardia, unspecified; K29.20 Alcoholic gastritis without bleeding; K70.11 Alcoholic hepatitis with ascites; G89.4 Chronic pain syndrome; R74.8 Abnormal levels of other serum enzymes; R11.0 Nausea; F41.9 Anxiety disorder, unspecified; F32.9 Major depressive disorder, single episode, unspecified; F43.10 Post-traumatic stress disorder, unspecified; K59.00 Constipation, unspecified; F17.200 Nicotine dependence, unspecified, uncomplicated; Z71.41 Alcohol abuse counseling and surveillance of alcoholic; Z88.8 Allergy status to other drugs, medicaments and biological substances; Z71.6 Tobacco abuse counseling; Y90.0 Blood alcohol level of less than 20 mg/100 ml
CPT/HCPCS: 36415; 71275; 74000; 74020; 76705; 80048; 80053; 80320; 81003; 82150; 83036; 83605; 83690; 83735; 84443; 85025; 85027; 85379; 85730; 93005; 96361; 96374; 96375; 96376; 99285

== ENCOUNTER 2017-10-17 21:34 | Emergency (ER) | payer OTHER ==
[2017-10-17 21:56] VITALS: BP 132/82; PULSE 100; RESP 18; TEMP 98.4
[2017-10-17] MEDS ORDERED: DIPH,PERTUS(ACELL)TETVAC-LF 0.5 ML VIAL IM ONE (23:04)
[2017-10-17] MEDS ORDERED: TOPICAL SKIN ADHESIVE 1 EACH AMP TOPICAL ONE (23:14)
--- NOTE | 2017-10-17 23:30 | ED ---
General Adult HPI - General Chief complaint: Wound/Laceration Stated complaint: Hand lacerations Time Seen by Provider: 10/17/17 22:50 Source: patient Mode of arrival: ambulatory Limitations: no limitations - History of Present Illness Initial comments: 47-year-old male presenting with laceration to right thumb. Patient was cutting food, cut the palmar surface over the distal phalanx on his left hand. Patient is uncertain of his tetanus status. No concern for foreign body. No other injuries noted. - Related Data Home Medications Medication Instructions Recorded Confirmed No Known Home Medications [No 10/17/17 10/17/17 Known Home Medications] Allergies Allergy/AdvReac Type Severity Reaction Status Date / Time bupropion HCl Allergy Anaphylaxis Verified 10/17/17 23:02 [From Wellbutrin] Review of Systems ROS Statement: Those systems with pertinent positive or pertinent negative responses have been documented in the HPI. ROS Other: All systems not noted in ROS Statement are negative. Past Medical History Past Medical History: Hypertension Additional Past Medical History / Comment(s): chronic pain History of Any Multi-Drug Resistant Organisms: None Reported Past Surgical History: No Surgical Hx Reported Additional Past Surgical History / Comment(s): circumscision at age 20, reconstructive surgery on right knee Past Psychological History: Anxiety, Depression, PTSD Smoking Status: Current every day smoker Past Alcohol Use History: Abuse, Daily Past Drug Use History: None Reported General Exam Limitations: no limitations General appearance: alert, in no apparent distress Head exam: Present: atraumatic, normocephalic Eye exam: Present: normal appearance, PERRL Respiratory exam: Present: normal lung sounds bilaterally. Absent: respiratory distress Cardiovascular Exam: Present: regular rate, normal rhythm GI/Abdominal exam: Present: soft. Absent: distended Extremities exam: Present: other (2 cm laceration on the palmar surface distal phalanx right thumb) Course Vital Signs 10/17/17 21:55 Temperature 98.4 F Pulse Rate 100 Respiratory 18 Rate Blood Pressure 132/82 O2 Sat by Pulse 98 Oximetry Procedures - Laceration Laceration #1 Consent Obtained: verbal consent Time Out Performed: Yes Site: hand Description: linear, clean Depth: simple, single layer Type of Sutures: other (Skin) Patient Tolerated Procedure: well Additional Comments: Skin glue Medical Decision Making - Medical Decision Making 47-year-old male with laceration caused by a kitchen knife. There was minimal bleeding, good approximation, this is irrigated cleansed and repaired with skin glue. Patient left prior to discharge. Diagnosis: Right thumb laceration, elopement Disposition Clinical Impression: Laceration Disposition: Left Against Medical Advice Condition: Undetermined Referrals: None,Stated [Primary Care Provider] - 1-2 days
== END 2017-10-17 23:30 | disposition left against medical advice (07) ==
LOC: EC 21:34
DX: S61.011A Laceration without foreign body of right thumb without damage to nail, initial encounter (principal); W26.0XXA Contact with knife, initial encounter; F17.200 Nicotine dependence, unspecified, uncomplicated; Z88.8 Allergy status to other drugs, medicaments and biological substances; Y93.89 Activity, other specified
CPT/HCPCS: 12001; 99282

== ENCOUNTER 2020-07-22 01:51 | Emergency (ER) | payer OTHER ==
[2020-07-22] MEDS ORDERED: HYDROcodone/APAP 5-325MG 1 EACH TAB PO STA (02:39)
[2020-07-22] MEDS ORDERED: IBUPROFEN 400 MG TAB PO STA (02:39)
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
--- NOTE | 2020-07-22 03:07 | XR ---
EXAMINATION TYPE: XR hand complete RT DATE OF EXAM: 07/22/2020 COMPARISON: NONE HISTORY: Trauma. Pain TECHNIQUE: 3 views FINDINGS: There is comminuted intra-articular fracture of the base of the proximal phalanx of the lit tle finger right hand. There is no dislocation. The fifth metacarpal appears intact. IMPRESSION: Comminuted fracture of the base of the proximal phalanx of the little finger.
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
[2020-07-22] MEDS ORDERED: HYDROmorphone 0.5 MG/0.5 ML SYRINGE IM STA (03:53)
[2020-07-22] MEDS ORDERED: HYDROmorphone 0.5 MG/0.5 ML SYRINGE IVP STA (03:56)
[2020-07-22 04:01] VITALS: TEMP 98.5
[2020-07-22] MEDS ORDERED: lisinopriL 10 MG TAB PO STA (04:03)
[2020-07-22] MEDS ORDERED: diphenhydrAMINE 50 MG/ML 1 ML VIAL IM STA (04:28)
[2020-07-22 05:10] VITALS: BP 165/112; PULSE 106; RESP 16
== END 2020-07-22 05:10 | disposition home or self-care (01) ==
LOC: EC 01:51
DX: S62.616A Displaced fracture of proximal phalanx of right little finger, initial encounter for closed fracture (principal); F17.200 Nicotine dependence, unspecified, uncomplicated; Z88.8 Allergy status to other drugs, medicaments and biological substances; Y08.09XA Assault by strike by other specified type of sport equipment, initial encounter
CPT/HCPCS: 73010; 73130; 73562; 71046; 99284; 96374; 96372; J1200; J1170

== ENCOUNTER 2022-01-05 09:06 | Inpatient (IN) | payer OTHER ==
[2022-01-05] MEDS ORDERED: SODIUM CHLORIDE 0.9% 1,000 ML IV STA (09:28)
[2022-01-05] MEDS ORDERED: LORazepam 2 MG/ML INJ IV STA (09:28)
[2022-01-05] MEDS ORDERED: THIAMINE 100 MG/ML 2 ML VIAL IM STA (09:45)
[2022-01-05] MEDS ORDERED: LORazepam 2 MG/ML INJ IV PRN ×2 (09:45)
[2022-01-05 09:53] LABS: Glucose,Whole Blood 162 mg/dL (75-99)
[2022-01-05 09:54] LABS: Basophils % (A) 1 %; Eosinophils # (A) 0.1 k/uL (0-0.7); Eosinophils % (A) 3 %; HCT 45.4 % (39.0-53.0); Lymphocytes # (A) 0.7 k/uL (1.0-4.8); Lymphocytes % (A) 16 %; MCH 33.9 pg (25.0-35.0); MCV 102.8 fL (80.0-100.0); Mean Platelet Volume 9.2; Monocytes # (A) 0.3 k/uL (0-1.0); Monocytes % (A) 8 %; Neutrophils % (A) 70 %; Platelet Count 196 k/uL (150-450); RBC 4.41 m/uL (4.30-5.90); RDW 11.8 % (11.5-15.5); WBC 4.3 k/uL (3.8-10.6)
--- NOTE | 2022-01-05 09:54 | ED ---
General Adult HPI - General Chief complaint: Seizure Stated complaint: seizure, ETOH Time Seen by Provider: 01/05/22 09:08 Source: patient, EMS, RN notes reviewed, old records reviewed Mode of arrival: EMS Limitations: altered mental status - History of Present Illness Initial comments: 51-year-old male presenting with suspected seizure activity. Patient was found by paramedics, confused, he had urinary incontinence. Apparently there was an episode of abnormal jerking movements followed by abnormal respirations. He was given Narcan by EMS with minimal improvement. There was history of alcohol abuse. Uncertain if this patient has currently been drinking. 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 However within sev eral minutes of being in the emergency department he did have a second witnessed tonic-clonic seizure lasting approximately 2-3 minutes. He was given 2 mg of Ativan at this time. - Related Data Previous Rx's Medication Instructions Recorded Hydrocodone/Acetaminophen [[place] 1 each PO Q6HR PRN #20 tab 07/22/20 5-325] lisinopriL [Zestril] 10 mg PO DAILY #30 tab 07/22/20 Allergies Allergy/AdvReac Type Severity Reaction Status Date / Time bupropion HCl Allergy Anaphylaxis Verified 07/22/20 01:59 [From Wellbutrin] Review of Systems ROS Statement: Those systems with pertinent positive or pertinent negative responses have been documented in the HPI. ROS Other: All systems not noted in ROS Statement are negative. Past Medical History Past Medical History: Hypertension Additional Past Medical History / Comment(s): chronic pain History of Any Multi-Drug Resistant Organisms: None Reported Past Surgical History: No Surgical Hx Reported Additional Past Surgical History / Comment(s): circumscision at age 20, reconstructive surgery on right knee Past Psychological History: Anxiety, Depression, PTSD Smoking Status: Current every day smoker Past Alcohol Use History: Abuse, Daily Past Drug Use History: None Reported General Exam Limitations: altered mental status General appearance: in no apparent distress, lethargic Head exam: Present: atraumatic, normocephalic Eye exam: Present: normal appearance, PERRL Neck exam: Present: normal inspection. Absent: tenderness, meningismus Respiratory exam: Present: normal lung sounds bilaterally. Absent: respiratory distress, wheezes Cardiovascular Exam: Present: normal rhythm, tachycardia GI/Abdominal exam: Present: soft. Absent: distended, tenderness, guarding, rebound Extremities exam: Present: normal inspection, normal capillary refill Neurological exam: Present: other (Confused, maintaining airway, moving all extremities symmetrically.). Absent: alert, oriented X3 Skin exam: Present: warm, dry, intact. Absent: cyanosis Course Vital Signs 01/05/22 01/05/22 09:27 11:31 Temperature 97.7 F Pulse Rate 116 H 122 H Respiratory 14 16 Rate Blood Pressure 124/67 158/115 O2 Sat by Pulse 96 Oximetry EKG Findings - EKG Comments: EKG Findings:: Sinus tachycardia, rate of 127, DE interval 159, QRS duration 92, QTC 386, no ST segment elevation. Medical Decision Making - Medical Decision Making 51-year-old male presenting with suspected seizure. Patient has a witnessed seizure while in the emergency department. This be second tonic clonic seizure. He is postictal for approximately 30-45 minutes. He returns to normal mental status and is able to provide history stating that he normally drinks large amount of beer and states that at approximately 2 days since his last drink. He does not recall ever having been diagnosed seizures in the past. He denies headache. No other complaints. Workup reveals normal CBC, CMP showing sodium 132, creatinine 1.3, he has an elevated lactic acid at 8.6 with the metabolic acidosis which I suspect is from seizure. This will be repeated to ensure down trending. His alcohol level is 0. His head CT is negative for intracranial hemorrhage or mass effect. He will be admitted on seizure precautions. He will be given Ativan according to CIWA. Case discussed with Dr. Red. - Lab Data Result diagrams: 01/05/22 09:38 01/05/22 09:38 Lab Results 01/05/22 01/05/22 01/05/22 Range/Units 09:38 09:38 09:38 WBC 4.3 (3.8-10.6) k/uL RBC 4.41 (4.30-5.90) m/uL Hgb 15.0 (13.0-17.5) gm/dL Hct 45.4 (39.0-53.0) % MCV 102.8 H (80.0-100.0) fL MCH 33.9 (25.0-35.0) pg MCHC 33.0 (31.0-37.0) g/dL RDW 11.8 (11.5-15.5) % Plt Count 196 (150-450) k/uL MPV 9.2 Neutrophils % 70 % Lymphocytes % 16 % Monocytes % 8 % Eosinophils % 3 % Basophils % 1 % Neutrophils # 3.0 (1.3-7.7) k/uL Lymphocytes # 0.7 L (1.0-4.8) k/uL Monocytes # 0.3 (0-1.0) k/uL Eosinophils # 0.1 (0-0.7) k/uL Basophils # 0.0 (0-0.2) k/uL Sodium 132 L (137-145) mmol/L Potassium 4.5 (3.5-5.1) mmol/L Chloride 99 (98-107) mmol/L Carbon Dioxide 14 L (22-30) mmol/L Anion Gap 19 mmol/L BUN 14 (9-20) mg/dL Creatinine 1.34 H (0.66-1.25) mg/dL Est GFR (CKD-EPI)AfAm 72 (>60 ml/min/1.73 sqM) Est GFR (CKD-EPI)NonAf 62 (>60 ml/min/1.73 sqM) Glucose 168 H (74-99) mg/dL POC Glucose (mg/dL) (75-99) mg/dL POC Glu Silk Conditioner ID Plasma Lactic Acid Duran (0.7-2.0) mmol/L Calcium 9.8 (8.4-10.2) mg/dL Magnesium 2.6 H (1.6-2.3) mg/dL Total Bilirubin 2.0 H (0.2-1.3) mg/dL AST 59 (17-59) U/L ALT 41 (4-49) U/L Alkaline Phosphatase 89 (38-126) U/L Total Protein 9.0 H (6.3-8.2) g/dL Albumin 5.2 H (3.5-5.0) g/dL Urine Color Yellow Urine Appearance Clear (Clear) Urine pH 6.0 (5.0-8.0) Ur Specific [place] 1.016 (1.001-1.035) Urine Protein 3+ H (Negative) Urine Glucose (UA) Negative (Negative) Urine Ketones 2+ H (Negative) Urine Blood Moderate H (Negative) Urine Nitrite Negative (Negative) Urine Bilirubin Negative (Negative) Urine Urobilinogen <2.0 (<2.0) mg/dL Ur Leukocyte Esterase Negative (Negative) Urine RBC 1 (0-5) /hpf Urine WBC 2 (0-5) /hpf Ur Squamous Epith Cells <1 (0-4) /hpf Urine Bacteria Rare H (None) /hpf Granular Casts 48 (0) /lpf Urine Mucus Rare H (None) /hpf Salicylates <1.0 mg/dL Urine Opiates Screen Not Detected (NotDetected) Ur Oxycodone Screen Not Detected (NotDetected) Urine Methadone Screen Not Detected (NotDetected) Ur Propoxyphene Screen Not Detected (NotDetected) Acetaminophen <10.0 ug/mL Ur Barbiturates Screen Not Detected (NotDetected) U Tricyclic Antidepress Not Detected (NotDetected) Ur Phencyclidine Scrn Not Detected (NotDetected) Ur Amphetamines Screen Not Detected (NotDetected) U Methamphetamines Scrn Not Detected (NotDetected) U Benzodiazepines Scrn Not Detected (NotDetected) Urine Cocaine Screen Not Detected (NotDetected) U Marijuana (THC) Screen Detected H (NotDetected) Serum Alcohol <10 mg/dL 01/05/22 01/05/22 Range/Units 09:39 09:51 WBC (3.8-10.6) k/uL RBC (4.30-5.90) m/uL Hgb (13.0-17.5) gm/dL Hct (39.0-53.0) % MCV (80.0-100.0) fL MCH (25.0-35.0) pg MCHC (31.0-37.0) g/dL RDW (11.5-15.5) % Plt Count (150-450) k/uL MPV Neutrophils % % Lymphocytes % % Monocytes % % Eosinophils % % Basophils % % Neutrophils # (1.3-7.7) k/uL Lymphocytes # (1.0-4.8) k/uL Monocytes # (0-1.0) k/uL Eosinophils # (0-0.7) k/uL Basophils # (0-0.2) k/uL Sodium (137-145) mmol/L Potassium (3.5-5.1) mmol/L Chloride (98-107) mmol/L Carbon Dioxide (22-30) mmol/L Anion Gap mmol/L BUN (9-20) mg/dL Creatinine (0.66-1.25) mg/dL Est GFR (CKD-EPI)AfAm (>60 ml/min/1.73 sqM) Est GFR (CKD-EPI)NonAf (>60 ml/min/1.73 sqM) Glucose (74-99) mg/dL POC Glucose (mg/dL) 162 H (75-99) mg/dL POC Glu Silk Conditioner ID Becca Sandoval Plasma Lactic Acid Duran 8.6 H* (0.7-2.0) mmol/L Calcium (8.4-10.2) mg/dL Magnesium (1.6-2.3) mg/dL Total Bilirubin (0.2-1.3) mg/dL AST (17-59) U/L ALT (4-49) U/L Alkaline Phosphatase (38-126) U/L Total Protein (6.3-8.2) g/dL Albumin (3.5-5.0) g/dL Urine Color Urine Appearance (Clear) Urine pH (5.0-8.0) Ur Specific [place] (1.001-1.035) Urine Protein (Negative) Urine Glucose (UA) (Negative) Urine Ketones (Negative) Urine Blood (Negative) Urine Nitrite (Negative) Urine Bilirubin (Negative) Urine Urobilinogen (<2.0) mg/dL Ur Leukocyte Esterase (Negative) Urine RBC (0-5) /hpf Urine WBC (0-5) /hpf Ur Squamous Epith Cells (0-4) /hpf Urine Bacteria (None) /hpf Granular Casts (0) /lpf Urine Mucus (None) /hpf Salicylates mg/dL Urine Opiates Screen (NotDetected) Ur Oxycodone Screen (NotDetected) Urine Methadone Screen (NotDetected) Ur Propoxyphene Screen (NotDetected) Acetaminophen ug/mL Ur Barbiturates Screen (NotDetected) U Tricyclic Antidepress (NotDetected) Ur Phencyclidine Scrn (NotDetected) Ur Amphetamines Screen (NotDetected) U Methamphetamines Scrn (NotDetected) U Benzodiazepines Scrn (NotDetected) Urine Cocaine Screen (NotDetected) U Marijuana (THC) Screen (NotDetected) Serum Alcohol mg/dL Critical Care Time Critical Care Time: Yes Total Critical Care Time: 35 Disposition Clinical Impression: New onset seizure, Alcohol withdrawal Disposition: ADMITTED IP TO THIS HOSP Condition: Serious Instructions (If sedation given, give patient instructions): Seizure/Epilepsy Discharge Instructions & Follow-Up Is patient prescribed a controlled substance at d/c from ED?: No Referrals: None,Stated [Primary Care Provider] - 1-2 days Decision to Admit Reason: Admit from EC Decision Date: 01/05/22 Decision Time: 11:46
[2022-01-05 10:06] LABS: AST 59 U/L (17-59); Acetaminophen <10.0 ug/mL; African American GFR (CKD) 72 (>60 ml/min/1.73 sqM); Albumin 5.2 g/dL (3.5-5.0); Alcohol <10 mg/dL; Alkaline Phosphatase 89 U/L (38-126); Anion Gap 19 mmol/L; Blood Urea Nitrogen 14 mg/dL (9-20); Calcium 9.8 mg/dL (8.4-10.2); Carbon Dioxide 14 mmol/L (22-30); Chloride 99 mmol/L (98-107); Glucose 168 mg/dL (74-99); Magnesium 2.6 mg/dL (1.6-2.3); Non-African American GFR(CKD) 62 (>60 ml/min/1.73 sqM); Potassium 4.5 mmol/L (3.5-5.1); Salicylate <1.0 mg/dL; Sodium 132 mmol/L (137-145)
[2022-01-05 10:12] LABS: ALT 41 U/L (4-49)
[2022-01-05 10:31] LABS: Appearance,Urine Clear (Clear); Bacteria,Urine Rare /hpf; Bilirubin,Urine Negative (Negative); Blood,Urine Moderate (Negative); Color,Urine Yellow; Glucose,Urine (UA) Negative (Negative); Granular Casts,Urine 48 /lpf (0); Ketones,Urine 2+ (Negative); Leukocyte Esterase,Urine Negative (Negative); Mucus,Urine Rare /hpf; Nitrite,Urine Negative (Negative); Protein,Urine 3+ (Negative); RBC,Urine 1 /hpf (0-5); Specific Gravity,Urine 1.016 (1.001-1.035); Squamous Epithelial Cell,Urine <1 /hpf (0-4); Urobilinogen,Urine <2.0 mg/dL (<2.0); WBC,Urine 2 /hpf (0-5)
[2022-01-05 10:33] LABS: Amphetamine Screen,Urine Not Detected (NotDetected); Barbiturate Screen,Urine Not Detected (NotDetected); Benzodiazepines Screen,Urine Not Detected (NotDetected); Cocaine Screen,Urine Not Detected (NotDetected); Methadone Screen, Urine Not Detected (NotDetected); Opiate Screen,Urine Not Detected (NotDetected); Oxycodone Screen, Urine Not Detected (NotDetected); Phencyclidine Screen,Urine Not Detected (NotDetected); Tricyclic Antidepressant,Urine Not Detected (NotDetected); Urn Cannabinoid Scrn Detected (NotDetected)
--- NOTE | 2022-01-05 11:39 | CT ---
EXAMINATION TYPE: CT brain wo con DATE OF EXAM: 01/05/2022 COMPARISON: None. HISTORY: ETOH, seizure activity CT DLP: 1056.4 mGycm. Automated Exposure Control for Dose Reduction was Utilized. TECHNIQUE: CT scan of the head is performed without contrast. FINDINGS: There is no acute hemorrhage or midline shift. Mild ventricular and sulcal prominence gre atest over the bilateral frontal lobes somewhat prominent for patient's chronologic age. Melgar-white m atter differentiation is maintained. Old fracture deformity medial wall left orbit axial image 8. Vis ualized paranasal sinuses are clear. IMPRESSION: No acute intracranial hemorrhage or midline shift is seen.
[2022-01-05] MEDS ORDERED: NALOXONE 0.4 MG/ML 1 ML VIAL IV PRN (11:41)
[2022-01-05] MEDS: SODIUM CHLORIDE 0.9% 1,000 ML IV SCH (12:03)
[2022-01-05] MEDS ORDERED: LACOSAMIDE IV 100 MG in SODIUM CHLORIDE 0.9% 50 ML IVPB STA (13:12)
--- NOTE | 2022-01-05 13:32 | P.CNNES ---
History of Present Illness Consult date: 01/05/22 Requesting physician: Jono Sauer Reason for Consult: seizure History of Present Illness: This is a 51-year-old gentleman with history who presented to the emergency department on 01/05/2022 by administration professional for suspected seizure. Patient was found by administration professional confused and had urinary incontinence. Some of the history is obtained from the medical record. Per the ED note the patient the head episode abnormal jerk in the movement followed by abnormal respiration and he was given Narcan by EMS with minimal improvement. Within a few minutes and the emergency department he had a witnessed tonic-clonic seizure-like activity lasting 2-3 minutes and was given 2 mg Ativan at that time. He was post ictal for ap proximately 30-45 minutes. Then started to wake-up. He notified me that he drinks 1-2 can of beer daily and does not drink heavily but notified the ED team that he drinks heavily and his last drink was about 2 days ago. He denied history of seizure in the past. He denied of stroke. He seems somewhat confused but per nurse is better compared to earlier. He denied of headache, weakness, neck pain. He does smoke cigarrettes about 5-10 cigarettes daily. Some other workup in the hospital consisted of: Initial heart rate is 116 but blood pressure, temperature and respiratory rates is unremarkable left. MCV is 102.8 otherwise rest of CBC with differential is unremarkable Chemistry panel is the sodium is 132, creatinine is 1.34, initial serum glucose is 168, Plasma-Lyte S vein is 8.6, magnesium is 2.6 and the AST and ALT is within normal limits Urinalysis is negative for urinary tract infection. Urine drug screen is negative for everything other than marijuana and his serum alcohol was less than 10 acetaminophen is less than 10 and sessile it's is less than 1.0. CT of the head is reported as no acute intracranial hemorrhage of midline shift is seen. I personally reviewed the CT of the head there is no acute or subacute ischemia there is no acute parenchymal hemorrhage or any mass effect. Review of Systems Review of system: The 12 point system was reviewed and apparent positive and negative per HPI. Past Medical History Past Medical History: Hypertension Additional Past Medical History / Comment(s): chronic pain History of Any Multi-Drug Resistant Organisms: None Reported Past Surgical History: No Surgical Hx Reported Additional Past Surgical History / Comment(s): circumscision at age 20, reconstructive surgery on right knee Past Psychological History: Anxiety, Depression, PTSD Smoking Status: Current every day smoker Past Alcohol Use History: Abuse, Daily Past Drug Use History: None Reported Medications and Allergies Home Medications Medication Instructions Recorded Confirmed Type No Known Home Medications 01/05/22 01/05/22 History Allergies Allergy/AdvReac Type Severity Reaction Status Date / Time bupropion HCl Allergy Anaphylaxis Verified 01/05/22 13:24 [From Wellbutrin] Physical Examination - Vital Signs Vital Signs: Vital Signs Temp Pulse Resp BP Pulse Ox 01/05/22 11:31 97.7 F 122 H 16 158/115 96 01/05/22 09:27 116 H 14 124/67 Intake and Output 01/04/22 01/05/22 01/05/22 22:59 06:59 14:59 Other: Weight 90.718 kg GENERAL: The patient is lying in bed and is not in acute distress but seems anxious. HENT: Supple neck. CHEST: The heart rate is regular rate rhythm. No murmurs to auscultation. No carotid bruit bilaterally. LUNG: Clear to auscultation bilaterally no wheezing noted throughout. Not labored breathing. ABDOMEN/GI: Bowel sounds present in all 4 quadrants. No tenderness to palpation throughout. NEUROLOGICAL: Higher mental function: The patient is awake, but seems mildly drowsy. He is oriented to self. He stated that he was in the hospital but stated the year is 2020ish and does not know the month. Patient is following simple commands. No aphasia and no neglect. Cranial nerves: The pupils are round, equal and reactive to light and accommodation. Visual fleming are hard to assess because of his cooperation. Extraocular movement is intact no nystagmus is noted. Facial sensation is no rmal to touch throughout. The facial strength is normal throughout. Tongue is midline and moved [id number] without any difficulty. No tongue bite seen. No dysarthria is noted. Shoulder shrug is normal bilaterally. Motor: The strength is uppers are 5/5. While lower is lifting above gravity but felt left lower is slighter weaker and not sure if effort related. Normal tone and bulk. Cerebellum: Normal finger to nose heel to kaur bilaterally. Sensation: Sensation is normal to touch throughout. Reflexes (right/left): 2+ throughout. Plantars are downgoing bilaterally. Results - Laboratory Findings CBC and BMP: 01/05/22 09:38 01/05/22 09:38 Abnormal Lab Findings: Abnormal Labs 01/05/22 01/05/22 01/05/22 09:38 09:38 09:38 MCV 102.8 H Lymphocytes # 0.7 L Sodium 132 L Carbon Dioxide 14 L Creatinine 1.34 H Glucose 168 H POC Glucose (mg/dL) Plasma Lactic Acid Duran Magnesium 2.6 H Total Bilirubin 2.0 H Total Protein 9.0 H Albumin 5.2 H Urine Protein 3+ H Urine Ketones 2+ H Urine Blood Moderate H Urine Bacteria Rare H Urine Mucus Rare H U Marijuana (THC) Screen Detected H 01/05/22 01/05/22 09:39 09:51 MCV Lymphocytes # Sodium Carbon Dioxide Creatinine Glucose POC Glucose (mg/dL) 162 H Plasma Lactic Acid Duran 8.6 H* Magnesium Total Bilirubin Total Protein Albumin Urine Protein Urine Ketones Urine Blood Urine Bacteria Urine Mucus U Marijuana (THC) Screen Assessment and Plan Assessment: New onset seizure (had two seizures and one was GTC lasting 2-3 minutes and was post-ictal). Unsure cause. He denies of significant alcohol to me but notified ED team that he drinks significantly and last drink was about 2 days ago (not sure if he was confused when he provided history). He was consistent to me that he does not drink heavily. Alcohol use Tobacco use Plan: Because of his two seizures: I loaded the patient with Vimpat 100mg once then started on Vimpat 50mg bid (not keepra since he notified me he has history of depression in past and Keppra worsens mood). Ordered Urgent EEG and will not be done until this coming Friday (01/07/22). Ordered MRI Brain w/w/o seizure protocol. Patient was given 2 mg Ativan in the ED. Patient was started on Ativan for CIWA protocol and will defer management to the primary team. Patient is on seizure precaution and seizure pads Every 4 hours neuro checks I ordered vitamin B12 and folate level. We'll defer the rest of the medical management to the primary team. Once the patient is more awake, will try to obtain further history from him. The plan was discussed with the patient and his nurse. Thank you for the consultation Agustín Roland M.D. Neuro-hospitalist Time with Patient: Greater than 30
[2022-01-05] MEDS: THIAMINE 100 MG TAB PO SCH (18:40)
[2022-01-05] MEDS: LACOSAMIDE IV 50 MG in SODIUM CHLORIDE 0.9% 50 ML IVPB SCH (20:47)
[2022-01-05] MEDS: LORazepam 2 MG/ML INJ IV PRN (21:00)
--- NOTE | 2022-01-05 21:49 | P.HPIM ---
History of Present Illness H&P Date: 01/05/22 Chief Complaint: Seizures Patient is a 51-year-old male with a known history of anxiety/depression, PTSD, currently everyday smoker and daily alcohol use, hypertension and chronic pain was brought to the hospital by EMS due to suspected seizure activity. Apparently patient was found by paramedics confused and had urinary incontinence. There was an episode of abnormal jerking movements followed by abnormal respirations. Patient was given Narcan by EMS with minimal impr ovement. Patient had some improvement in mental status however several minutes of being in the emergency department he did have a second weakness tonic-clonic seizure lasting approximately 2 to 3 minutes. He was given a dose of 2 mg of Ativan at the time. Patient is currently appears to be confused but awake and alert. Patient states that he was at his friend's place yesterday and by the time he woke up he is currently in the ER. Patient denied any daily alcohol use. Last drink 2 days ago as per patient. Does not remember what happened prior. CT head on admission showed no acute intracranial hemorrhage or midline shift seen. EKG showed sinus tachycardia. Laboratory test showed WBC 4.3 hemoglobin 15.0 MCV 102.8 and platelets 196 sodium 132 potassium 4.5 chloride 99 bicarb is 14 BUN 9390 creatinine 1.34 Plasma lactic acid level is 8.6 on admission Magnesium 2.6 Urinalysis showed 3+ protein 2+ ketones and moderate blood UDS is positive for marijuana and serum alcohol level is less than 10. Review of Systems Complete review of systems could not be obtained at this time. Past Medical History Past Medical History: Hypertension Additional Past Medical History / Comment(s): chronic pain History of Any Multi-Drug Resistant Organisms: None Reported Past Surgical History: No Surgical Hx Reported Additional Past Surgical History / Comment(s): circumscision at age 20, reconstructive surgery on right knee Past Psychological History: Anxiety, Depression, PTSD Smoking Status: Current every day smoker Past Alcohol Use History: Abuse, Daily Past Drug Use History: None Reported Medications and Allergies Home Medications Medication Instructions Recorded Confirmed Type No Known Home Medications 01/05/22 01/05/22 History Allergies Allergy/AdvReac Type Severity Reaction Status Date / Time bupropion HCl Allergy Anaphylaxis Verified 01/05/22 13:24 [From Wellbutrin] Physical Exam Vitals: Vital Signs Temp Pulse Resp BP Pulse Ox 01/05/22 11:31 97.7 F 122 H 16 158/115 96 01/05/22 09:27 116 H 14 124/67 Intake and Output 01/04/22 01/05/22 01/05/22 22:59 06:59 14:59 Other: Weight 90.718 kg PHYSICAL EXAMINATION: Patient is lying in the bed comfortably, no acute distress, awake but confused., Alert HEENT: Normocephalic. Neck is supple. Pupils reactive. Nostrils clear. Oral cavity is moist. Neck reveals no JVD, carotid bruits, or thyromegaly. CHEST EXAMINATION: Trachea is central. Symmetrical expansion. Lung fleming clear to auscultation and percussion. CARDIAC: Normal S1, S2 with no gallops. No murmurs ABDOMEN: Soft. Bowel sounds normal. No organomegaly. No abdominal bruits. Extremities: reveal no edema. No clubbing or cyanosis Neurologically awake, alert, oriented x1-2 with well-coordinated movements. No gross focal deficits noted Skin: No rash or skin lesions. Psychiatric: Cooperative. Could not be assessed completely. Musculoskeletal: No joint swelling or deformity. Normal range of motion. Results CBC & Chem 7: 01/05/22 09:38 01/05/22 09:38 Labs: Abnormal Lab Results - Last 24 Hours (Table) 01/05/22 01/05/22 01/05/22 Range/Units 09:38 09:38 09:38 MCV 102.8 H (80.0-100.0) fL Lymphocytes # 0.7 L (1.0-4.8) k/uL Sodium 132 L (137-145) mmol/L Carbon Dioxide 14 L (22-30) mmol/L Creatinine 1.34 H (0.66-1.25) mg/dL Glucose 168 H (74-99) mg/dL POC Glucose (mg/dL) (75-99) mg/dL Plasma Lactic Acid Duran (0.7-2.0) mmol/L Magnesium 2.6 H (1.6-2.3) mg/dL Total Bilirubin 2.0 H (0.2-1.3) mg/dL Total Protein 9.0 H (6.3-8.2) g/dL Albumin 5.2 H (3.5-5.0) g/dL Urine Protein 3+ H (Negative) Urine Ketones 2+ H (Negative) Urine Blood Moderate H (Negative) Urine Bacteria Rare H (None) /hpf Urine Mucus Rare H (None) /hpf U Marijuana (THC) Screen Detected H (NotDetected) 01/05/22 01/05/22 Range/Units 09:39 09:51 MCV (80.0-100.0) fL Lymphocytes # (1.0-4.8) k/uL Sodium (137-145) mmol/L Carbon Dioxide (22-30) mmol/L Creatinine (0.66-1.25) mg/dL Glucose (74-99) mg/dL POC Glucose (mg/dL) 162 H (75-99) mg/dL Plasma Lactic Acid Duran 8.6 H* (0.7-2.0) mmol/L Magnesium (1.6-2.3) mg/dL Total Bilirubin (0.2-1.3) mg/dL Total Protein (6.3-8.2) g/dL Albumin (3.5-5.0) g/dL Urine Protein (Negative) Urine Ketones (Negative) Urine Blood (Negative) Urine Bacteria (None) /hpf Urine Mucus (None) /hpf U Marijuana (THC) Screen (NotDetected) Thrombosis Risk Factor Assmnt - DVT/VTE Prophylaxis DVT/VTE Prophylaxis: Pharmacologic Prophylaxis ordered Assessment and Plan Assessment: Acute tonic-clonic seizures x2 episodes. Possible new onset seizures. Serial lactic acidosis 8.6 on admission Acute kidney injury with creatinine level 1.34. Likely prerenal Hypovolemic hyponatremia Macrocytosis with MCV 102.8 Alcohol use on daily basis Marijuana positive in the UDS Ongoing Nicotinex Anxiety/depression/PTSD GI and DVT prophylaxis Plan: Patient will be continued on seizure precautions and fall precautions. Continue with alcohol withdrawal protocol. Continue with IV hydration. Patient was started on Vimpat as per neurology recommendations. EEG was ordered. MRI of the brain was ordered to rule out any acute process. Continue with Ativan as needed. Follow-up TSH, B12 and folate levels. Continue to follow closely. Time with Patient: Greater than 30
--- NOTE | 2022-01-05 23:06 | XR ---
EXAMINATION TYPE: XR chest 1V DATE OF EXAM: 01/05/2022 COMPARISON: NONE HISTORY: Confusion TECHNIQUE: Single view FINDINGS: Heart and mediastinum are normal. Lungs are clear. Diaphragm is normal. Bony thorax appears normal. IMPRESSION: Normal chest
[2022-01-05] MEDS: HEPARIN SODIUM,PORCINE/PF 5,000 UNIT/0.5 ML SYRINGE SQ SCH (23:08)
[2022-01-06] MEDS: SODIUM CHLORIDE 0.9% 1,000 ML IV SCH ×2 (03:48→16:46)
[2022-01-06] MEDS: THIAMINE 100 MG TAB PO SCH ×2 (06:13→16:46)
[2022-01-06 07:29] LABS: Basophils % (A) 0 %; Eosinophils # (A) 0.1 k/uL (0-0.7); Eosinophils % (A) 2 %; HCT 41.7 % (39.0-53.0); HGB 13.7 gm/dL (13.0-17.5); Lymphocytes # (A) 0.9 k/uL (1.0-4.8); Lymphocytes % (A) 25 %; MCH 33.9 pg (25.0-35.0); MCV 102.8 fL (80.0-100.0); Mean Platelet Volume 8.9; Monocytes # (A) 0.4 k/uL (0-1.0); Monocytes % (A) 11 %; Neutrophils # (A) 2.2 k/uL (1.3-7.7); Neutrophils % (A) 60 %; Platelet Count 159 k/uL (150-450); RBC 4.05 m/uL (4.30-5.90); RDW 11.8 % (11.5-15.5); WBC 3.7 k/uL (3.8-10.6)
[2022-01-06 07:54] LABS: ALT 26 U/L (4-49); AST 41 U/L (17-59); African American GFR (CKD) 42 (>60 ml/min/1.73 sqM); Albumin 4.3 g/dL (3.5-5.0); Alkaline Phosphatase 76 U/L (38-126); Anion Gap 9 mmol/L; Blood Urea Nitrogen 19 mg/dL (9-20); Calcium 8.8 mg/dL (8.4-10.2); Carbon Dioxide 18 mmol/L (22-30); Chloride 107 mmol/L (98-107); Glucose 108 mg/dL (74-99); Non-African American GFR(CKD) 36 (>60 ml/min/1.73 sqM); Sodium 134 mmol/L (137-145); Total Bilirubin 1.7 mg/dL (0.2-1.3); Total Protein 7.9 g/dL (6.3-8.2)
[2022-01-06] MEDS: HEPARIN SODIUM,PORCINE/PF 5,000 UNIT/0.5 ML SYRINGE SQ SCH ×3 (09:31→22:00)
[2022-01-06] MEDS: LACOSAMIDE IV 50 MG in SODIUM CHLORIDE 0.9% 50 ML IVPB SCH ×2 (09:31→21:45)
[2022-01-06] MEDS ORDERED: LORazepam 2 MG/ML INJ IV PRN (14:21)
--- NOTE | 2022-01-06 14:24 | P.PN ---
Subjective Progress Note Date: 01/06/22 The patient is seen at bedside and per nurse no further seizure-like activity overnight or today. He still stated he does not know what happened and per nurse he remains somewhat confused. Per nurse she states he notified her that he does not consume alcohol heavily and told me that he drinks 1-2 cans daily. Objective - Vital Signs Vital signs: Vital Signs Temp 97.8 F 01/06/22 12:45 Pulse 101 H 01/06/22 12:45 Resp 18 01/06/22 12:45 BP 151/97 01/06/22 12:45 Pulse Ox 97 01/06/22 12:45 Intake & Output 01/05/22 01/06/22 01/06/22 18:59 06:59 18:59 Intake Total 110 Output Total 500 Balance -390 Weight 90.718 kg Intake: Oral 110 Output: Urine 500 Other: # Voids 2 - Exam GENERAL: The patient is lying in bed and is not in acute distress but seems anxious. NEUROLOGICAL: Higher mental function: The patient is awake, but seems mildly drowsy. He is oriented to self, stated he was in the hospital but does not know name. He stated he does not know the month or the year. . Patient is following simple commands. No aphasia and no neglect. Cranial nerves: The pupils are round, equal and reactive to light. Visual fleming: Right monotonous hemianopsia. Extraocular movement is intact no nystagmus is noted. Facial sensation is normal to touch throughout. The facial strength is normal throughout. Tongue is midline and moved [id number] without any difficulty. No tongue bite seen. No dysarthria is noted. Shoulder shrug is normal bilaterally. Motor: The strength is 5/5 throughout. Normal tone and bulk. Cerebellum: Normal finger to nose bilaterally. Sensation: Sensation is normal to touch throughout. WORK-UP: MCV is 102.8 otherwise rest of CBC with differential is unremarkable Chemistry panel is the sodium is 132, creatinine is 1.34, initial serum glucose is 168, Plasma-Lyte S vein is 8.6, magnesium is 2.6 and the AST and ALT is within normal limits TSH is 1.820 Serum folate is 16.9 Vitamin B12 is 414. Urinalysis is negative for urinary tract infection. Urine drug screen is negative for everything other than marijuana and his serum alcohol was less than 10 acetaminophen is less than 10 and sessile it's is less than 1.0. CT of the head is reported as no acute intracranial hemorrhage of midline shift is seen. I personally reviewed the CT of the head there is no acute or subacute ischemia there is no acute parenchymal hemorrhage or an - Labs CBC & Chem 7: 01/06/22 06:40 01/06/22 06:40 Labs: Abnormal Lab Results - Last 24 Hours (Table) 01/06/22 01/06/22 Range/Units 06:40 06:40 WBC 3.7 L (3.8-10.6) k/uL RBC 4.05 L (4.30-5.90) m/uL MCV 102.8 H (80.0-100.0) fL Lymphocytes # 0.9 L (1.0-4.8) k/uL Sodium 134 L (137-145) mmol/L Carbon Dioxide 18 L (22-30) mmol/L Creatinine 2.09 H (0.66-1.25) mg/dL Glucose 108 H (74-99) mg/dL Total Bilirubin 1.7 H (0.2-1.3) mg/dL Assessment and Plan Assessment: * New onset seizure (had two seizures and one was GTC lasting 2-3 minutes and was post-ictal). On examination he has right monotonous hemianopsia. Rule out stroke versus mass. He denies of significant alcohol to nurse and myself but notified ED team that he drinks significantly and last drink was about 2 days ago. He was consistent to me that he does not drink heavily. I don't feel this is alcohol withdrawl. * Alcohol use * Tobacco use Plan: Because of his two seizures: I loaded the patient with Vimpat 100mg once then started on Vimpat 50mg bid (not keepra since he notified me he has history of depression in past and Keppra worsens mood). Ordered Urgent EEG and will not be done until this coming Friday (01/07/22). Ordered MRI Brain w/w/o seizure protocol. Patient is on seizure precaution and seizure pads Every 4 hours neuro checks Ordered Ativan 1mg q4 hour for seizure. He is on CIWA protocol and will defer management to primary team. He is on thiamine. We'll defer the rest of the medical management to the primary team. The plan was discussed with the patient and his nurse. Agustín Basha, M.D. Neuro-hospitalist Time with Patient: Less than 30
[2022-01-06] MEDS ORDERED: hydrALAZINE HCL 20 MG/ML 1 ML VIAL IVP PRN (20:15)
[2022-01-06] MEDS: amLODIPine 10 MG TAB PO SCH (20:39)
--- NOTE | 2022-01-07 00:30 | P.PN ---
Subjective Progress Note Date: 01/06/22 Patient is a 51-year-old male with a known history of anxiety/depression, PTSD, currently everyday smoker and daily alcohol use, hypertension and chronic pain was brought to the hospital by EMS due to suspected seizure activity. Apparently patient was found by paramedics confused and had urinary incontin ence. There was an episode of abnormal jerking movements followed by abnormal respirations. Patient was given Narcan by EMS with minimal improvement. Patient had some improvement in mental status however several minutes of being in the emergency department he did have a second weakness tonic-clonic seizure lasting approximately 2 to 3 minutes. He was given a dose of 2 mg of Ativan at the time. Patient is currently appears to be confused but awake and alert. Patient states that he was at his friend's place yesterday and by the time he woke up he is currently in the ER. Patient denied any daily alcohol use. Last drink 2 days ago as per patient. Does not remember what happened prior. CT head on admission showed no acute intracranial hemorrhage or midline shift seen. EKG showed sinus tachycardia. Laboratory test showed WBC 4.3 hemoglobin 15.0 MCV 102.8 and platelets 196 sodium 132 potassium 4.5 chloride 99 bicarb is 14 BUN 9390 creatinine 1.34 Plasma lactic acid level is 8.6 on admission Magnesium 2.6 Urinalysis showed 3+ protein 2+ ketones and moderate blood UDS is positive for marijuana and serum alcohol level is less than 10. 2021 Patient is currently resting in the bed. Awake alert but seems to be confused. No further episodes of seizures overnight. Patient is being continued antiepileptic medications. Denies any complaints of chest pain or shortness breath. Afebrile. No cough or sputum production. No headache or dizziness or lightheadedness. Patient does drink 1-2 beers on a daily basis when available. Denies any recent binge drinking. Laboratory data showed WBC 3.7 hemoglobin 13.7 and platelets 159 sodium 134 potassium 4.0 chloride 107 bicarb is 18 BUN 19 and creatinine 2.09. Patient is being continued on IV hydration. Neurology is on board. Current medications reviewed. Objective - Vital Signs Vital signs: Vital Signs Temp 98.0 F 01/06/22 16:44 Pulse 101 H 01/06/22 16:44 Resp 18 01/06/22 16:44 BP 160/90 03/20/22 16:44 Pulse Ox 97 01/06/22 16:44 Intake & Output 01/05/22 01/06/22 01/06/22 18:59 06:59 18:59 Intake Total 230 Output Total 1200 Balance -970 Weight 90.718 kg Intake: Oral 230 Output: Urine 1200 Other: # Voids 2 - Exam PHYSICAL EXAMINATION: Patient is lying in the bed comfortably, no acute distress, awake but confused., Alert HEENT: Normocephalic. Neck is supple. Pupils reactive. Nostrils clear. Oral cavity is moist. Neck reveals no JVD, carotid bruits, or thyromegaly. CHEST EXAMINATION: Trachea is central. Symmetrical expansion. Lung fleming clear to auscultation and percussion. CARDIAC: Normal S1, S2 with no gallops. No murmurs ABDOMEN: Soft. Bowel sounds normal. No organomegaly. No abdominal bruits. Extremities: reveal no edema. No clubbing or cyanosis Neurologically awake, alert, oriented x1-2 with well-coordinated movements. No gross focal deficits noted Skin: No rash or skin lesions. Psychiatric: Cooperative. Could not be assessed completely. Musculoskeletal: No joint swelling or deformity. Normal range of motion. - Labs CBC & Chem 7: 01/06/22 06:40 01/06/22 06:40 Labs: Abnormal Lab Results - Last 24 Hours (Table) 01/06/22 01/06/22 Range/Units 06:40 06:40 WBC 3.7 L (3.8-10.6) k/uL RBC 4.05 L (4.30-5.90) m/uL MCV 102.8 H (80.0-100.0) fL Lymphocytes # 0.9 L (1.0-4.8) k/uL Sodium 134 L (137-145) mmol/L Carbon Dioxide 18 L (22-30) mmol/L Creatinine 2.09 H (0.66-1.25) mg/dL Glucose 108 H (74-99) mg/dL Total Bilirubin 1.7 H (0.2-1.3) mg/dL Assessment and Plan Assessment: Acute tonic-clonic seizures x2 episodes. Possible new onset seizures. Serial lactic acidosis 8.6 on admission Acute kidney injury with creatinine level 1.34. Likely prerenal Uncontrolled hypertension. Hypovolemic hyponatremia Macrocytosis with MCV 102.8 Alcohol use on daily basis Marijuana positive in the UDS Ongoing Nicotinex Anxiety/depression/PTSD GI and DVT prophylaxis Plan: Patient will be continued on seizure precautions and fall precautions. Continue with alcohol withdrawal protocol. Continue with IV hydration. Patient was started on Vimpat as per neurology recommendations. EEG was ordered. MRI of the brain was ordered to rule out any acute process. Continue with Ativan as needed. Follow-up TSH, B12 and folate levels.Patient will be started on Norvasc 10 mg daily. Titrate blood pressure medications as tolerated. Continue to follow closely. Time with Patient: Greater than 30
[2022-01-07] MEDS: SODIUM CHLORIDE 0.9% 1,000 ML IV SCH ×4 (05:08→22:45)
[2022-01-07] MEDS: THIAMINE 100 MG TAB PO SCH ×2 (06:33→16:06)
[2022-01-07 07:27] LABS: Basophils % (A) 0 %; Eosinophils # (A) 0.1 k/uL (0-0.7); Eosinophils % (A) 3 %; HCT 43.6 % (39.0-53.0); HGB 14.4 gm/dL (13.0-17.5); Lymphocytes # (A) 1.2 k/uL (1.0-4.8); Lymphocytes % (A) 28 %; MCHC 32.9 g/dL (31.0-37.0); MCV 103.4 fL (80.0-100.0); Mean Platelet Volume 9.8; Monocytes # (A) 0.3 k/uL (0-1.0); Monocytes % (A) 7 %; Neutrophils # (A) 2.6 k/uL (1.3-7.7); Neutrophils % (A) 61 %; Platelet Count 159 k/uL (150-450); RBC 4.22 m/uL (4.30-5.90); RDW 11.6 % (11.5-15.5); WBC 4.2 k/uL (3.8-10.6)
[2022-01-07 07:41] LABS: Potassium 4.1 mmol/L (3.5-5.1)
--- NOTE | 2022-01-07 09:08 | US ---
EXAMINATION TYPE: US kidneys/renal and bladder DATE OF EXAM: 01/07/2022 COMPARISON: NONE CLINICAL HISTORY: 51-year-old male SHANON TECHNIQUE: Multiple sonographic images of the kidneys and bladder are obtained. FINDINGS: EXAM MEASUREMENTS: Right Kidney: 11.4 x 5.1 x 4.9 cm Left Kidney: 11.0 x 4.4 x 5.2 cm Right Kidney: No hydronephrosis or masses seen Left Kidney: No hydronephrosis or masses seen Bladder: wnl Bilateral Jets seen: Yes IMPRESSION: No hydronephrosis.
[2022-01-07] MEDS: amLODIPine 10 MG TAB PO SCH (10:06)
[2022-01-07] MEDS: HEPARIN SODIUM,PORCINE/PF 5,000 UNIT/0.5 ML SYRINGE SQ SCH ×3 (10:06→22:45)
[2022-01-07] MEDS: LACOSAMIDE IV 50 MG in SODIUM CHLORIDE 0.9% 50 ML IVPB SCH (11:36)
--- NOTE | 2022-01-07 15:08 | P.PN ---
Subjective Progress Note Date: 01/07/22 Patient initially seen by Dr. Agustín Roland. Please refer to his note for details. Patient is a 51-year-old male, with new onset seizure. Patient had 2 witnessed generalized tonic-clonic seizures. He lost control of urine and bowels with his seizure, but no tongue bite. His vitals were stable as per EMS flow sheet. Patient was started on Vimpat 50 mg twice a day by Dr. Roland. Patient denies any headache. Patient admits that he drinks two of 22 oz beers 3 times a week. He called that Memolane brand beer. Patient denies any history of seizure ever. He denies any visual symptoms. No other symptoms. He does not remember how he got to the hospital. He has no recollection of the memory. Objective - Vital Signs Vital signs: Vital Signs Temp 98.3 F 01/07/22 11:30 Pulse 99 01/07/22 11:30 Resp 15 01/07/22 11:30 BP 161/100 01/07/22 11:30 Pulse Ox 100 01/07/22 11:30 Intake & Output 01/06/22 01/07/22 01/07/22 18:59 06:59 18:59 Intake Total 230 500 0 Output Total 1200 1200 Balance -970 -700 0 Intake: Intake, IV Titration 500 Amount Lacosamide IV 50 mg In 100 Sodium Chloride 0.9% 50 ml @ 100 mls/hr IVPB BID [facility] Rx#:[id number] Sodium Chloride 0.9% 1, 400 000 ml @ 100 mls/hr IV . Q10H [facility] Rx#:[id number] Oral 230 0 Output: Urine 1200 1200 Other: Voiding Method Urinal Urinal - Exam Patient is a middle aged [place]ro[place] male, in no acute distress. Patient is alert awake. Level of consciousness is normal. Full awake. He states that he is in [place]. He states it is either August or September and the year is either or . He knows name of the current president. Also knows his date of . Speech and language functi ons are normal. Attention, concentration and fund of knowledge is slightly limited as above. On cranial examination, pupils are equal round and reacting to light, visual fleming revealed right lower quadrant homonymous visual field defect on confrontation, extraocular muscles are intact with no nystagmus. He is frequently tearing from the right eye. Face is symmetric, tongue protrudes to the midline. Palatal elevation and sensation normal, hearing and shoulder shrug normal, facial sensation normal. Shoulder shrug normal. On muscle strength testing, there is no pronator drift and the strength is normal in arms and legs distally and proximally. Deep tendon reflexes are 1+ and plantars downgoing. Sensory to touch is equal with no neglect. Cerebellar function showed no ataxia for [id number] testing, although patient is slightly tremulous in the right upper extremity. No dysdiad ochokinesia. No ataxia in the lower extremity. Tone and bulk of muscles normal. Gait deferred. On general examination, there is no carotid bruit or murmur, S1-S2 audible. Abdomen is soft nontender. Chest is clear. Peripheral pulses are present. No edema. - Labs CBC & Chem 7: 01/07/22 05:31 01/07/22 05:31 Labs: Abnormal Lab Results - Last 24 Hours (Table) 01/07/22 01/07/22 Range/Units 05:31 05:31 RBC 4.22 L (4.30-5.90) m/uL MCV 103.4 H (80.0-100.0) fL Chloride 109 H (98-107) mmol/L Creatinine 1.98 H (0.66-1.25) mg/dL Glucose 109 H (74-99) mg/dL Assessment and Plan Assessment: * New onset seizure (had two seizures and one was GTC lasting 2-3 minutes and was post-ictal). He denies significant alcoholism, only drinks 2 of 22 ounce s beer every other day (when he has money to buy). He denies significant alcoholism, although elevated MCV points towards possible alcoholism. * Right lower quadrant homonymous visual field deficit. Rule out stroke versus mass. * Elevated MCV with normal B12 folate, likely due to alcoholism. * Acute renal insufficiency, improving. * ?Alcohol use * Tobacco use Plan: Patient currently on Vimpat 50 mg twice a day. Patient's insurance not covering the medication. We will stop Vimpat. We will decide if antiepileptic medication is indicated or not based upon MRI and EEG results. EEG was performed today, which was mildly abnormal because of suppressed background and some low voltage fast frequency beta, suggestive of mild encephalopathy and perhaps medication effect. No epileptiform activity was seen. MRI Brain w/w/o has been completed, report is pending. On my review, does not appear to have any mass lesion, acute stroke or any acute process. Patient's right lower quadrant homonymous visual field deficit is of unclear cause. We will empirically start aspirin 81 mg daily. Patient was recommended to follow up with [facility] as an outpatient for formal visual field testing. Patient is on seizure precaution and seizure pads He is on CISC protocol and will defer management to primary team. Continue thiamine. Check CK. Patient's B12 is 414, folate 16.9, TSH 1.82. We'll defer the rest of the medical management to the primary team. Patient informed of [place] state law of no driving unless seizure free for 6 months. Patient states that he does not drive in any case. He was also informed, no climbing ladders, operating dangerous machinery or unsupervised swimming. Addendum 3:31 PM: As this is a new onset seizure. With normal EEG and MRI of the brain, there is no indication for starting AED. His seizure perhaps related to some degree of alcoholism versus alcohol withdrawal. We will hold off on AED at this time. Discussed with Dr. Guthrie.
[2022-01-07] MEDS: ASPIRIN 81 MG PO SCH (16:06)
--- NOTE | 2022-01-07 22:19 | MR ---
EXAMINATION TYPE: MR brain wo/w con DATE OF EXAM: 01/07/2022 COMPARISON: CT brain 01/05/2022. HISTORY: Seizure TECHNIQUE: Multiplanar, multisequence images of the brain and brainstem is performed without and with IV contras t, utilizing 9 cc intravenous Gadavist . FINDINGS: Motion limits some of the sequences. Diffusion weighted images demonstrate no evidence of a recent in farct or other diffusion abnormality. There is no extra-axial fluid collection or significant white matter signal abnormality. The ventricular system and cisternal spaces are normal in size and appear ance. The brain volume is age appropriate. No evidence of vascular malformation. Scattered areas of high T2 signal intensity are seen within the periventricular white matter. Small [address] noted. Low T1 signal seen within the splenium of the corpus callosum without postcontrast enhancem ent and best appreciated on sagittal. Area of encephalomalacia of the left occipital lobe from prior injury. Midline structures demonstrate normal morphology. The craniocervical junction appears within normal limits. Post contrast images demonstrate no abnormal enhancement. The dural venous sinuses appear pa tent. The visualized sinuses are clear and the globes are intact. IMPRESSION: 1. No evidence of intracranial mass, acute/subacute infarct, or abnormal enhancement. 2. Nonspecific white matter changes, likely related to small vessel ischemic disease 3. 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 4. Signal abnormality within the splenium of the corpus callosum which is only really appreciated on sagittal imaging and may relate to prior ischemic injury.
--- NOTE | 2022-01-08 00:04 | P.PN ---
Subjective Progress Note Date: 01/07/22 Patient is a 51-year-old male with a known history of anxiety/depression, PTSD, currently everyday smoker and daily alcohol use, hypertension and chronic pain was brought to the hospital by EMS due to suspected seizure activity. Apparently patient was found by paramedics confused and had urinary inconti nence. There was an episode of abnormal jerking movements followed by abnormal respirations. Patient was given Narcan by EMS with minimal improvement. Patient had some improvement in mental status however several minutes of being in the emergency department he did have a second weakness tonic-clonic seizure lasting approximately 2 to 3 minutes. He was given a dose of 2 mg of Ativan at the time. Patient is currently appears to be confused but awake and alert. Patient states that he was at his friend's place yesterday and by the time he woke up he is currently in the ER. Patient denied any daily alcohol use. Last drink 2 days ago as per patient. Does not remember what happened prior. CT head on admission showed no acute intracranial hemorrhage or midline shift seen. EKG showed sinus tachycardia. Laboratory test showed WBC 4.3 hemoglobin 15.0 MCV 102.8 and platelets 196 sodium 132 potassium 4.5 chloride 99 bicarb is 14 BUN 9390 creatinine 1.34 Plasma lactic acid level is 8.6 on admission Magnesium 2.6 Urinalysis showed 3+ protein 2+ ketones and moderate blood UDS is positive for marijuana and serum alcohol level is less than 10. 3 2021 Patient is currently resting in the bed. Awake alert but seems to be confused. No further episodes of seizures overnight. Patient is being continued antiepileptic medications. Denies any complaints of chest pain or shortness breath. Afebrile. No cough or sputum production. No headache or dizziness or lightheadedness. Patient does drink 1-2 beers on a daily basis when available. Denies any recent binge drinking. Laboratory data showed WBC 3.7 hemoglobin 13.7 and platelets 159 sodium 134 potassium 4.0 chloride 107 bicarb is 18 BUN 19 and creatinine 2.09. Patient is being continued on IV hydration. Neurology is on board. 01/07/2022 Patient is seen today in follow up and being closely monitored. Patient is continued on IV normal saline and will continue. Kidney functions remain elevated. Nephrology consulted. Neurology following and EEG and MRI of the brain ordered today. Patient was started on Vimpat and continued on seizure precautions. Discussed with neurology about discontinuing Vimpat and possible Keppra if EEG and or MRI are abnormal as patient has no insurance and unable to afford medication. Patient continued on CIWA protocol. Encouraged increased activity as tolerated. Review of systems: Constitutional: No reports of fatigue, fever, or chills Cardiovascular: No reports of chest pain or palpitations Respiratory: No reports of shortness of breath or cough GI: No reports of nausea, vomiting, or diarrhea : No reports of dysuria or retention Neurovascular: reports of generalized weakness All medications have been reviewed Active Medications Amlodipine Besylate (Amlodipine 10 Mg Tab) 10 mg PO DAILY [facility] Last Admin: 01/07/22 10:06 Dose: 10 mg Documented by: Aspirin (Aspirin 81 Mg) 81 mg PO DAILY [facility] Last Admin: 01/07/22 16:06 Dose: 81 mg Documented by: Heparin Sodium (Porcine) (Heparin Sodium,Porcine/Pf 5,000 Unit/0.5 Ml Syringe) 5,000 unit SQ Q8HR [facility] Last Admin: 01/07/22 16:06 Dose: 5,000 unit Documented by: Hydralazine HCl (Hydralazine Hcl 20 Mg/Ml 1 Ml Vial) 10 mg IVP Q6HR PRN PRN Reason: Blood Pressure - High Last Admin: 01/06/22 22:00 Dose: 10 mg Documented by: Sodium Chloride (Saline 0.9%) 1,000 mls @ 100 mls/hr IV .Q10H [facility] Last Admin: 01/07/22 10:06 Dose: 100 mls/hr Documented by: Lorazepam (Lorazepam 2 Mg/Ml Inj) 1 mg IV Q2HR PRN PRN Reason: CIWA 8 or 9 Last Admin: 01/05/22 21:00 Dose: 1 mg Documented by: Lorazepam (Lorazepam 2 Mg/Ml Inj) 1 mg IV Q1HR PRN PRN Reason: CIWA 10 to 15 Lorazepam (Lorazepam 2 Mg/Ml Inj) 1 mg IV Q4HR PRN PRN Reason: Seizures Last Admin: 01/06/22 22:00 Dose: 1 mg Documented by: Naloxone HCl (Naloxone 0.4 Mg/Ml 1 Ml Vial) 0.2 mg IV Q2M PRN PRN Reason: Opioid Reversal Thiamine HCl (Thiamine 100 Mg Tab) 100 mg PO BID-W/MEALS [facility] Last Admin: 01/07/22 16:06 Dose: 100 mg Documented by: PHYSICAL EXAMINATION: GENERAL: The patient is currently awake, alert and oriented 3, Well developed, well nourished. HEENT: Pupils are round and equally reacting to light. EOMI. no scleral icterus. No conjunctival pallor. Normocephalic, atraumatic. No pharyngeal erythema. No thyromegaly. CARDIOVASCULAR: S1 and S2 muffled PULMONARY: diminished breath sounds bilaterally with no wheezing or rhonchi noted. ABDOMEN: soft. non-tender on exam. non-distended, normoactive bowel sounds. No palpable organomegaly. MUSCULOSKELETAL: No joint swelling or deformity. EXTREMITIES: No cyanosis, clubbing, or pedal edema. NEUROLOGICAL: No gross neurological deficits noted. SKIN: No rashes. Assessment: Acute tonic-clonic seizures x2 episodes. Possible new onset seizures. Most likely alcohol induced. MRI and EEG negative Severe lactic acidosis 8.6 on admission, improved Acute kidney injury with elevated creatinine level. Likely prerenal, 1.98 today and will continue IV fluids and repeat labs in am Uncontrolled hypertension. Hypovolemic hyponatremia Macrocytosis with MCV 102.8 Alcohol use on daily basis Marijuana positive in the UDS Ongoing Nicotine use Anxiety/depression/PTSD GI and DVT prophylaxis Full code Plan: Patient will be continued on seizure precautions and fall precautions. No further seizure activity noted. Neurology following and patietn was started on vimpat. EEG and MRI of the brain were negative. Likely related alcohol use. Will not require anti-seizure medication at this time. Continue with alcohol withdrawal protocol. Continue with IV hydration as creatinine is elevated. Will repeat BMP in the am. Consult to nephrology placed and pending. Patient was started on Norvasc 10 mg daily. Titrate blood pressure medications as tolerated. Possible discharge in 24 hours. The impression and plan of care has been dictated by Tanya Moran, nurse practitioner as directed. MD Remington I have performed a history and examination and MDM of this patient, discussed the same with the dictator, and agree with the dictator's assessment and plan as written ,documented as a scribe. Based on total visit time, I have performed more than 50% of the visit. Objective - Vital Signs Vital signs: Vital Signs Temp 97.6 F 01/07/22 02:42 Pulse 88 01/07/22 02:42 Resp 17 01/07/22 02:42 BP 138/87 01/07/22 02:42 Pulse Ox 100 01/07/22 02:42 Intake & Output 01/06/22 01/07/22 01/07/22 18:59 06:59 18:59 Intake Total 230 500 Output Total 1200 1200 Balance -970 -700 Intake: Intake, IV Titration 500 Amount Lacosamide IV 50 mg In 100 Sodium Chloride 0.9% 50 ml @ 100 mls/hr IVPB BID [facility] Rx#:[id number] Sodium Chloride 0.9% 1, 400 000 ml @ 100 mls/hr IV . Q10H [facility] Rx#:[id number] Oral 230 Output: Urine 1200 1200 Other: Voiding Method Urinal Urinal - Labs CBC & Chem 7: 01/07/22 05:31 01/07/22 05:31 Labs: Abnormal Lab Results - Last 24 Hours (Table) 01/07/22 01/07/22 Range/Units 05:31 05:31 RBC 4.22 L (4.30-5.90) m/uL MCV 103.4 H (80.0-100.0) fL Chloride 109 H (98-107) mmol/L Creatinine 1.98 H (0.66-1.25) mg/dL Glucose 109 H (74-99) mg/dL
[2022-01-08] MEDS: LORazepam 2 MG/ML INJ IV PRN (01:13)
[2022-01-08] MEDS: THIAMINE 100 MG TAB PO SCH (06:31)
[2022-01-08 08:03] LABS: Calcium 9.1 mg/dL (8.4-10.2); Potassium 3.9 mmol/L (3.5-5.1)
--- NOTE | 2022-01-08 08:26 | EEG ---
ELECTROENCEPHALOGRAM REPORT DATE OF SERVICE: 01/07/2022 PREAMBLE: This is a 51-year-old male with new-onset seizure. EEG FINDINGS: This is a 21-channel digital EEG recorded with video component, utilizing 10/20 international system with referential and bipolar montages. Background consists of generalized suppressed very low-voltage activity in bihemispheric region. Some low- voltage fast frequency beta activity was seen. Background does not seem to be clearly reactive to eye opening and closing. Different stages of sleep were not seen. Photic driving response was not seen. No focal or generalized epileptiform activity was seen. EKG channel showed no obvious arrhythmia. IMPRESSION: This is an abnormal EEG due to suppressed, low amplitude background, with frequent low-voltage fast frequency beta activity. This is suggestive of mild generalized cerebral dysfunction as can be seen with encephalopathy or medication effect. No epileptiform activity was seen. MMNATEL / ROSARIO: [id number] / MTDNely
[2022-01-08] MEDS: amLODIPine 10 MG TAB PO SCH (09:14)
[2022-01-08] MEDS: HEPARIN SODIUM,PORCINE/PF 5,000 UNIT/0.5 ML SYRINGE SQ SCH (09:14)
[2022-01-08] MEDS: ASPIRIN 81 MG PO SCH (09:14)
[2022-01-08] MEDS: SODIUM CHLORIDE 0.9% 1,000 ML IV SCH (09:15)
--- NOTE | 2022-01-08 10:43 | P.NPCON ---
History of Present Illness - Reason for Consult acute renal failure - History of Present Illness Patient is a 51-year-old male with history of anxiety/depression, PTSD who was admitted to the hospital with history of confusion and possible seizure-like activity. Patient was found to have urinary incontinence when EMS arrived. Patient denies any previous history of kidney diseases. No history of use of NSAIDs prior to admission. Serum creatinine was 2.0 on 01/06/2022 on initial admission and it is down to 1.45. Patient has been maintained on IV fluids. He has had good urine output. Blood pressure was not significantly low. UA shows 3+ protein. Moderate blood was noted as well ultrasound was unre markable with no evidence of obstruction Review of Systems As per HPI other systems negative Past Medical History Past Medical History: Hypertension Additional Past Medical History / Comment(s): chronic pain History of Any Multi-Drug Resistant Organisms: None Reported Past Surgical History: No Surgical Hx Reported Additional Past Surgical History / Comment(s): circumscision at age 20, reconstructive surgery on right knee Past Anesthesia/Blood Transfusion Reactions: No Reported Reaction Past Psychological History: Anxiety, Depression, PTSD Smoking Status: Current every day smoker Past Alcohol Use History: Abuse, Daily Past Drug Use History: None Reported Medications and Allergies Home Medications Medication Instructions Recorded Confirmed Type No Known Home Medications 01/05/22 01/05/22 History Allergies Allergy/AdvReac Type Severity Reaction Status Date / Time bupropion HCl Allergy Anaphylaxis Verified 01/05/22 13:24 [From Wellbutrin] Physical Exam Vitals: Vital Signs Temp Pulse Resp BP BP Pulse Ox 01/08/22 09:13 98 F 80 18 135/106 100 01/08/22 02:50 98.0 F 81 18 138/82 99 01/08/22 02:00 88 17 01/07/22 23:50 97.9 F 88 17 140/95 100 01/07/22 20:00 98.0 F 73 18 161/93 100 01/07/22 16:04 99 F 92 15 131/92 100 01/07/22 11:30 98.3 F 99 15 161/100 100 Intake and Output 01/07/22 01/08/22 01/08/22 22:59 06:59 14:59 Intake Total 120 800 120 Output Total 300 1600 Balance -180 -800 120 Intake: Intake, IV Titration 500 Amount Sodium Chloride 0.9% 1, 500 000 ml @ 100 mls/hr IV . Q10H [facility] Rx#:[id number] Oral 120 300 120 Output: Urine 300 1600 Other: Voiding Method Urinal Urinal Urinal Patient is comfortable awake he is not in any acute distress Examination of the heart S1 and S2 Examination lungs bilateral breath sounds are heard Abdomen is soft nontender Haddock examination lower extremities shows no evidence of edema. ECD exam grossly intact Results - Lab Results Most recent lab results Calcium 9.1 mg/dL (8.4-10.2) 01/08/22 06:13 Magnesium 2.6 mg/dL (1.6-2.3) H 01/05/22 09:38 01/07/22 05:31 01/08/22 06:13 Assessment and Plan Assessment: 1. Acute kidney injury, prerenal, nonoliguric and currently improved 2. Rule out chronic kidney disease as patient's UA does show 3+ protein, rule out underlying chronic GN. Patient will need quantification of the proteinuria and and further workup with serologies. This can all be done as outpatient. Ultrasound is unremarkable. Prior creatinine 1.1 and 0.8 in 2019 and 2017. 3. New onset seizures being followed by neurology and maintained on Vimpat 4. Proteinuria, see above possibly related to rhabdo my lysis as well. CK was 719 Plan: Patient is stable for discharge from nephrology standpoint. He will need follow-up as outpatient for repeat urine analysis , quantification of proteinuria and workup if proteinuria is persistent.
[2022-01-08 11:04] VITALS: BP 151/96; PULSE 81; RESP 16; TEMP 98.4
--- NOTE | 2022-01-08 19:21 | P.DS ---
Providers Date of admission: 01/05/22 11:41 Expected date of discharge: 01/08/22 Attending physician: Malena Red Consults: 01/05/22 11:42 Consult Physician Routine Consulting Provider: Agustín Roland Consult Reason/Comments: seizure Do you want consulting provider notified?: Yes 01/07/22 15:26 Consult Physician Routine Consulting Provider: Joanna Rodriguez Consult Reason/Comments: SHANON Do you want consulting provider notified?: Yes Primary care physician: Stated None Hospital Course: Final diagnosis Acute tonic-clonic seizures x2 episodes. Possible new onset seizures. Most likely alcohol induced. MRI and EEG negative Severe lactic acidosis 8.6 on admission, improved Acute kidney injury with elevated creatinine level. Likely prerenal proteinuria, further work-up outpatient Possible chronic kidney disease, work up outpatient with nephrology Uncontrolled hypertension. Hypovolemic hyponatremia Macrocytosis with MCV 102.8 Alcohol use on daily basis Marijuana positive in the UDS Ongoing Nicotine use Anxiety/depression/PTSD GI and DVT prophylaxis Full code Discharge disposition Patient is being discharged in a stable condition with guarded prognosis to home . Patient will follow-up with Dr. Fagan in the outpatient setting upon discharge. Patient is to follow-up with nephro and neurology as well. Total time taken is greater than 35 minutes. Hospital course This is a 51-year-old male who was recently admitted with AMS, acute alcohol intoxication with possible new onset seizure and was being closely monitored. Neurology evaluated the patient and was initially started on Vimpat and underwent MRI of the brain and EEG which was negative. Patient found to be hypertensive and was started on Norvasc. Patient also with SHANON and possible chronic kidney disease with proteinuria which requires further work-up outpatient. Patient will also be started on an aspirin daily and will follow up with neurology. Currently no reports of chest pain, shortness of breath, or palpitations. Patient is afebrile. No reports of nausea or vomiting and patient is tolerating diet. Patient will be discharged home today. Guarded prognosis. Physical exam: Patient is awake, alert and oriented x 3. HEENT: Normocephalic. Neck is supple. Pupils reactive. Nostrils clear. Oral cavity is moist. Neck: no JVD, carotid bruits, or thyromegaly. CHEST EXAMINATION: Trachea is central. Symmetrical expansion. Lung fleming clear to auscultation and percussion. CARDIAC: Normal S1, S2 with no gallops. No murmurs ABDOMEN: Soft. Bowel sounds normal. No organomegaly. No abdominal bruits. Extremities: reveal no edema. No clubbing or cyanosis Neurologically awake, alert x3. With well-coordinated movements. No gross focal deficits noted Skin: No rash or skin lesions. Psychiatric: cooperative. Musculoskeletal: No joint swelling or deformity. Normal range of motion. Please refer to medication reconciliation sheet for a list of medications. The impression and plan of care has been dictated by Tanya Moran, Nurse Practitioner as directed. Dr. Jerri MD I have performed a history and examination and MDM of this patient, discussed the same with the dictator, and agree with the dictator's assessment and plan as written ,documented as a scribe. Based on total visit time, I have performed more than 50% of the visit. Patient Condition at Discharge: Stable Plan - Discharge Summary Discharge Rx Participant: No New Discharge Prescriptions: New Aspirin 81 mg PO DAILY 30 Days #30 tab chlordiazePOXIDE HCl [Librium] 10 mg PO TID 3 Days #9 capsule amLODIPine [Norvasc] 10 mg PO DAILY #30 tab Thiamine [Vitamin B-1] 100 mg PO BID-W/MEALS 30 Days #60 tab Discharge Medication List Aspirin 81 mg PO DAILY 30 Days #30 tab 01/08/22 [Rx] Thiamine [Vitamin B-1] 100 mg PO BID-W/MEALS 30 Days #60 tab 01/08/22 [Rx] amLODIPine [Norvasc] 10 mg PO DAILY #30 tab 01/08/22 [Rx] chlordiazePOXIDE HCl [Librium] 10 mg PO TID 3 Days #9 capsule 01/08/22 [Rx] Follow up Appointment(s)/Referral(s): Joanna Rodriguez MD [STAFF PHYSICIAN] - 01/15/22 9:20 am (Nephrology (kidney) Doctor; you are scheduled with Delfino - Nurse Practitioner) Gabby Fagan MD [REFERRING] - 1 Week (Office is closed; please call to schedule a followup appointment. ) Ambulatory/Diagnostic Orders: Basic Metabolic Panel [LAB.AMB] Time Frame: 3 Days, Location: None Selected Patient Instructions/Handouts: Seizure/Epilepsy Discharge Instructions & Follow-Up, Chronic Hypertension (DC), Alcohol Withdrawal (DC) Activity/Diet/Wound Care/Special Instructions: Activity Limited until follow-up Resources provided and patient encouraged to follow-up with primary care provider to establish Patient needs outpatient follow-up with neurology Outpatient follow-up with nephrology in one week Continue taking medications as prescribed Continue with Librium taper and avoid all alcohol intake Continue current diet Recommend repeat labs this week to monitor kidney functions Discharge/Stand Alone Forms: Outpatient Counseling Discharge Disposition: HOME SELF-CARE
--- NOTE | 2022-01-09 06:46 | ECHOF ---
Referral Reason:History of CVA, seizure MEASUREMENTS -------- HEIGHT: 152.4 cm WEIGHT: 89.8 kg BP: RVIDd: 2.9 cm (< 3.3) IVSd: 1.1 cm (0.6 - 1.1) LVIDd: 4.1 cm (3.9 - 5.3) LVPWd: 1.6 cm (0.6 - 1.1) IVSs: 1.4 cm LVIDs: 3.8 cm LVPWs: 1.4 cm Ao Diam: 2.9 cm (2.0 - 3.7) AV Cusp: 1.9 cm (1.5 - 2.6) MV E Suraj: 0.50 m/s MV DecT: 203 ms MV A Suraj: 0.67 m/s MV E/A Ratio: 0.74 FINDINGS -------- Sinus rhythm. This was a technically good study. LV size, wall thickness and systolic function are normal, with an EF greater than 55%. The left jacobo tricular size is normal. The right ventricle is normal in size. The left atrial size is normal. The right atrial size is normal. The aortic valve is trileaflet, and appears structurally normal. No aortic stenosis or regurgitation. Mild mitral regurgitation is present. Mild tricuspid regurgitation present. Right ventricular systolic pressure is normal at < 35 mmHg. There is no pulmonic regurgitation present. There is no pericardial effusion. CONCLUSIONS -------- 1. LV size, wall thickness and systolic function are normal, with an EF greater than 55%. 2. The left ventricular size is normal. 3. The right ventricle is normal in size. 4. The left atrial size is normal. 5. The right atrial size is normal. 6. The aortic valve is trileaflet, and appears structurally normal. No aortic stenosis or regurgitati on. 7. Mild mitral regurgitation is present. 8. Mild tricuspid regurgitation present. 9. There is no pericardial effusion. SHIP CEILER: Leilani Wagner RDCS
--- NOTE | 2022-01-09 18:48 | P.PN ---
Subjective Progress Note Date: 01/08/22 01/08/2022: Patient sitting in the recliner. No further seizures. Offers no complaints. 01/07/2022: Patient initially seen by Dr. Agustín Roland. Please refer to his note for details. Patient is a 51-year-old male, with new onset seizure. Patient had 2 witnessed generalized tonic-clonic seizures. He lost control of urine and bowels with his seizure, but no tongue bite. His vitals were stable as per EMS flow sheet. Patient was started on Vimpat 50 mg twice a day by Dr. Roland. Patient denies any headache. Patient admits that he drinks two of 22 oz beers 3 times a week. He called that [employer] brand beer. Patient denies any history of seizure ever. He denies any visual symptoms. No other symptoms. He does not remember how he got to the hospital. He has no recollection of the memory. Objective - Vital Signs Vital signs: Vital Signs Temp 98.4 F 01/08/22 11:03 Pulse 81 01/08/22 11:03 Resp 16 01/08/22 11:03 BP 151/96 01/08/22 11:03 Pulse Ox 100 01/08/22 11:03 Intake & Output 01/08/22 01/09/22 01/09/22 18:59 06:59 18:59 Intake Total 240 Output Total 450 Balance -210 Intake: Oral 240 Output: Urine 450 Other: Voiding Method Urinal - Exam Patient is a middle aged Afro-Honduran male, in no acute distress. Patient is alert awake. Level of consciousness is normal. Full awake. He states that he is in [facility]. He states it is either August or September and the year is either or . He knows name of the current president. Also knows his date of . Speech and language functions are normal. Attention, concentration and fund of knowledge is slightly limited as above. On cranial examination, pupils are equal round and reacting to light, visual fleming revealed right homonymous hemianopia on confrontation, extraocular muscles are intact with no nystagmus. He is frequently tearing from the right eye. Face is symmetric, tongue protrudes to the midline. Palatal elevation and sensation normal, hearing and shoulder shrug normal, facial sensation normal. Shoulder shrug normal. On muscle strength testing, there is no pronator drift and the strength is normal in arms and legs distally and proximally. Deep tendon reflexes are 1+ and plantars downgoing. Sensory to touch is equal with no neglect. Cerebellar function showed no ataxia for [id number] testing, although patient is slightly tremulous in the right upper extremity. No dysdiadochokinesia. No ataxia in the lower extremity. Tone and bulk of muscles normal. Gait deferred. On general examination, there is no carotid bruit or murmur, S1-S2 audible. Abdomen is soft nontender. Chest is clear. Peripheral pulses are present. No edema. - Labs CBC & Chem 7: 01/07/22 05:31 01/08/22 06:13 Assessment and Plan Assessment: * New onset seizure (had two seizures and one was GTC lasting 2-3 minutes and was post-ictal). He denies significant alcoholism, only drinks 2 of 22 ounces beer every other day (when he has money to buy). He denies significant alcoholism, although elevated MCV points towards possible alcoholism. * Right homonymous hemianopia visual field deficit. MRI brain revealed remote CVA. * Elevated MCV with normal B12 folate, likely due to alcoholism. * Acute renal insufficiency, improving. BUN 14, creatinine 1.45. * ?Alcohol use * Tobacco use Plan: MRI of the brain revealed no acute process. Nonspecific white matter changes, likely related to small vessel ischemic disease. 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 On my review, there is no enhancement of this lesion on the post contrast studies. Patient denies any history of CVA in the past. However this lesion is definitely chronic in nature. Patient off AED, as patient's routine EEG was normal, and seizure was felt to be possibly ? provoked from alcohol withdrawal. Patient will be scheduled for prolonged, 2.5 hour EEG at [facility]. Patient will be followed up with Dr. Esquivel regarding need for AED. Patient will be started on AED, if the EEG shows any epileptiform activity, or if patient has any other breakthrough s eizures. Patient has been scheduled for these appointments by criminalist technician Anahy. Routine EEG 01/07/2022 was mildly abnormal because of suppressed background and some low voltage fast frequency beta, suggestive of mild encephalopathy and perhaps medication effect. No epileptiform activity was seen. Regarding remote injury/? remote CVA, patient will be started on aspirin 81 mg daily. 2-D echo performed, which revealed normal left-ventricular size, wall thickness and systolic function, EF greater than 55%. Left-ventricular size is normal. Left atrial size is normal. No embolic source. Patient's B12 is 414, folate 16.9, TSH 1.82. CK 719. Patient informed of [place] state law of no driving unless seizure free for 6 months. Patient states that he does not drive in any case. He was also informed, no climbing ladders, operating dangerous machinery or unsupervised swimming. Patient recommended to stay off alcohol.
== END 2022-01-08 16:44 | disposition home or self-care (01) | DRG 897 ==
LOC: EC 09:06 → 3SCARD 11:41
PROVIDERS: ADMIT Internal Medicine; ATTEND Internal Medicine
DX: F10.239 Alcohol dependence with withdrawal, unspecified (principal); E87.1 Hypo-osmolality and hyponatremia; E87.2 Acidosis; N17.9 Acute kidney failure, unspecified; R56.9 Unspecified convulsions; D75.89 Other specified diseases of blood and blood-forming organs; E86.1 Hypovolemia; F17.210 Nicotine dependence, cigarettes, uncomplicated; F32.A Depression, unspecified; F43.10 Post-traumatic stress disorder, unspecified; G89.29 Other chronic pain; H53.461 Homonymous bilateral field defects, right side; I10 Essential (primary) hypertension; R32 Unspecified urinary incontinence; Z79.82 Long term (current) use of aspirin; Z79.899 Other long term (current) drug therapy; Z86.73 Personal history of transient ischemic attack (TIA), and cerebral infarction without residual deficits; Z72.89 Other problems related to lifestyle; Y90.0 Blood alcohol level of less than 20 mg/100 ml
CPT/HCPCS: 36415; 70450; 70553; 71045; 76770; 80048; 80053; 80143; 80179; 80306; 80320; 81001; 82550; 82607; 82746; 83605; 83735; 84443; 85025; 93005; 93306; 95816; 96361; 96365; 96366; 96372; 96375; 99285

== ENCOUNTER 2023-04-17 20:35 | Emergency (ER) | payer OTHER ==
[2023-04-17 20:52] VITALS: TEMP 98.9
[2023-04-17 20:56] LABS: Glucose,Whole Blood 134 mg/dL (70-110)
[2023-04-17] MEDS ORDERED: LORazepam 2 MG/ML INJ IV STA (21:02)
[2023-04-17] MEDS ORDERED: levETIRAcetam IV 500 MG/5 ML VIAL IVP STA (21:02)
[2023-04-17] MEDS: SODIUM CHLORIDE 0.9% 1,000 ML IV STA ×2 (21:17→21:35)
[2023-04-17 21:21] LABS: HCT 52.8 % (39.0-53.0); HGB 15.6 gm/dL (13.0-17.5); Hypochromasia Marked; MCH 30.4 pg (25.0-35.0); MCHC 29.5 g/dL (31.0-37.0); MCV 102.9 fL (80.0-100.0); Macrocytosis Slight; Mean Platelet Volume 9.5; Platelet Count 276 k/uL (150-450); RBC 5.13 m/uL (4.30-5.90); RDW 12.7 % (11.5-15.5); WBC 13.9 k/uL (3.8-10.6)
[2023-04-17] MEDS ORDERED: LORazepam 2 MG/ML INJ IV PRN ×3 (21:26)
[2023-04-17] MEDS ORDERED: SODIUM CHLORIDE 0.9% 1,000 ML IV STA ×3 (21:26→23:17)
[2023-04-17] MEDS ORDERED: THIAMINE 100 MG/ML 2 ML VIAL IM STA (21:26)
[2023-04-17 21:39] LABS: AST 258 U/L (17-59); Acetaminophen <10.0 ug/mL; African American GFR (CKD) 32 (>60 ml/min/1.73 sqM); Albumin 5.8 g/dL (3.5-5.0); Alcohol 53 mg/dL; Alkaline Phosphatase 103 U/L (38-126); Blood Urea Nitrogen 14 mg/dL (9-20); Calcium 10.8 mg/dL (8.4-10.2); Carbamazepine (Tegretol) <3.0 ug/mL; Chloride 100 mmol/L (98-107); Glucose 152 mg/dL (74-99); Lithium <0.2 mmol/L; Magnesium 3.7 mg/dL (1.6-2.3); Non-African American GFR(CKD) 28 (>60 ml/min/1.73 sqM); Phenytoin (Dilantin) <3.0 ug/mL; Potassium 4.9 mmol/L (3.5-5.1); Salicylate <1.0 mg/dL; Sodium 147 mmol/L (137-145); Total Bilirubin 0.9 mg/dL (0.2-1.3); Total Protein 10.4 g/dL (6.3-8.2)
[2023-04-17 21:42] LABS: Valproic Acid (Depakene) <10.0 ug/mL
[2023-04-17 21:44] LABS: ALT 100 U/L (4-49)
[2023-04-17 21:58] LABS: Eosinophils # (M) 1.11 k/uL (0-0.7); Lymphocytes # (M) 9.73 k/uL (1.0-4.8); Monocytes # (M) 0.28 k/uL (0-1.0); Neutrophils # (M) 2.78 k/uL (1.3-7.7); Neutrophils % (M) 20 %; Nucleated Red Blood Cells 0 /100 WBC (0-0); Total Cells Counted 100
[2023-04-17 22:11] LABS: Carbon Dioxide <5 mmol/L (22-30)
[2023-04-17] MEDS ORDERED: TRANEXAMIC 1,000 MG/100ML-NACL 1,000 MG in SALINE 1 100ML.BAG IV STA (22:36)
--- NOTE | 2023-04-17 22:38 | CT ---
EXAMINATION TYPE: CT brain wo con DATE OF EXAM: 04/17/2023 COMPARISON: 06/05/2022 HISTORY: Seizure activity. CT DLP: 1169.[address] of the brain was performed. The ventricles, basal cisterns and sulci overlying the cerebral convexities demonstrate mild enlargem ent. There is extra-axial hyperdensity seen high right parietal lobe posteriorly measuring 8.5 mm in thick ness axial image 40 of 2032 and 3.6 cm in length seen on sagittal image 24 of 2034. There is decreased attenuation about the periventricular white matter and deep white matter of both c erebral hemispheres, compatible with chronic small vessel ischemia. Differential diagnosis does inclu de demyelination. No mass effects are seen.No midline shift. Osseous calvarium is intact. If symptoms persist consider MRI. IMPRESSION: 1. Small Acute right-sided subdural hematoma as indicated above. 2.. Age related atrophic and chronic small vessel ischemic change . A screw going radiology. Dietary macules head CT a small subdural on the right artery and its marked on the films to consider are inta ct thank you
[2023-04-17] MEDS ORDERED: niCARdipine 20 MG in SODIUM CHLORIDE 0.9% 192 ML IV SCH (22:45)
--- NOTE | 2023-04-17 22:45 | ED ---
General Adult HPI - General Chief complaint: Seizure Stated complaint: Seizure Time Seen by Provider: 04/17/23 21:03 Source: patient, EMS, RN notes reviewed, old records reviewed Mode of arrival: EMS Limitations: no limitations - History of Present Illness Initial comments: Patient is a 52-year-old male presents emergency Department for breakthrough sei georgiae. Has a history of alcohol abuse, seizure disorder noncompliant with Keppra, polysubstance abuse to expressed a seizure at home. Unknown trauma. Is not on blood thinners. Was postictal for EMS and was somewhat agitated. Unable to provide any history. Patient is not speaking but does make in Comprehensible sounds. Does open eyes to pain. Localizes pain as well. Presents for further evaluation at this time. - Related Data Home Medications Medication Instructions Recorded Confirmed Aspirin EC [Ecotrin Low Dose] 81 mg PO DAILY 06/06/22 06/06/22 Atorvastatin Calcium [Lipitor] 40 mg PO HS 06/06/22 06/06/22 Famotidine 20 mg PO BID 06/06/22 06/06/22 Folic Acid 1 mg PO DAILY 06/06/22 06/06/22 carvediloL [Coreg] 3.125 mg PO BID 06/06/22 06/06/22 lisinopriL [Zestril] 10 mg PO DAILY 06/06/22 06/06/22 Previous Rx's Medication Instructions Recorded Thiamine [Vitamin B-1] 100 mg PO DAILY tab 06/07/22 amLODIPine [Norvasc] 10 mg PO DAILY 30 Days #30 tab 06/07/22 levETIRAcetam [Keppra] 500 mg PO Q12HR 30 Days #60 tab 06/07/22 Allergies Allergy/AdvReac Type Severity Reaction Status Date / Time bupropion HCl Allergy Anaphylaxis Verified 01/05/22 13:24 [From Wellbutrin] Review of Systems ROS Statement: Those systems with pertinent positive or pertinent negative responses have been documented in the HPI. ROS Other: All systems not noted in ROS Statement are negative. Past Medical History Past Medical History: Hypertension Additional Past Medical History / Comment(s): chronic pain History of Any Multi-Drug Resistant Organisms: None Reported Past Surgical History: No Surgical Hx Reported Additional Past Surgical History / Comment(s): circumscision at age 20, reconstructive surgery on right knee Past Anesthesia/Blood Transfusion Reactions: No Reported Reaction Past Psychological History: Anxiety, Depression, PTSD Smoking Status: Current every day smoker Past Alcohol Use History: Abuse, Daily Past Drug Use History: None Reported General Exam - General Exam Comments Initial Comments: General: Appears postictal, snoring. HEAD: Normal with no signs of head trauma. EYES: PERRLA, EOMI, conjunctiva normal, no discharge. Pupils are 3-4 mm and equal bilaterally. ENT: Hearing grossly intact, normal oropharynx. Dry mucous membranes RESPIRATORY: Clear breath sounds bilaterally. No wheezes, rales, or rhonchi. C/V: Tachycardic. S1 and S2 auscultated, no edema, peripheral pulses 2+ and intact throughout ABD: Abd is soft, nontender, nondistended EXT: Normal range of motion, no obvious deformity. Right knee brace. SKIN: No rashes or lesions observed on exposed skin. NEURO: Not alert or oriented. Appears postictal. GCS is currently 9-10. Remainder of the neuro exam is difficult to obtain secondary to patient's current clinical status. Limitations: no limitations Course Vital Signs 04/17/23 04/17/23 04/17/23 20:47 21:22 22:00 Temperature 98.9 F Pulse Rate 115 H 105 H 122 H Respiratory 22 24 22 Rate Blood Pressure 115/70 94/64 90/54 O2 Sat by Pulse 98 96 97 Oximetry 04/17/23 22:59 Temperature Pulse Rate 125 H Respiratory 24 Rate Blood Pressure 87/57 O2 Sat by Pulse 100 Oximetry Medical Decision Making - Medical Decision Making Was pt. sent in by a medical professional or institution (, PA, PSYCHOLOGIST DEVELOPMENTAL, urgent care, hospital, or snf...) When possible be specific @ -No Did you speak to anyone other than the patient for history (EMS, parent, family, police, friend...)? What history was obtained from this source @ -No Did you review nursing and triage notes (agree or disagree)? Why? @ -I reviewed and agree with nursing and triage notes Were old charts reviewed (outside hosp., previous admission, EMS record, old EKG, old radiological studies, urgent care reports/EKG's, snf records)? Report findings @ -Old charts reviewed from May 2022. Differential Diagnosis (chest pain, altered mental status, abdominal pain women, abdominal pain men, vaginal bleeding, weakness, fever, dyspnea, syncope, headache, dizziness, GI bleed, back pain, seizure, CVA, palpatations, mental health, musculoskeletal)? @ -Differential Altered Mental Status: Hypoglycemia, DKA, hypercapnia, ETOH, overdose, CO poisoning, trauma, myxedema coma, HTN encephalopathy, infection, encephalitis, psychosis, intercranial hemorrhage, hepatic encephalopathy, meningitis, CVA, this is not meant to be an all-inclusive list EKG interpreted by me (3pts min.). @ -As above X-rays interpreted by me (1pt min.). @ -None done CT interpreted by me (1pt min.). @ -Brain CT reveals an acute subdural hematoma U/S interpreted by me (1pt. min.). @ -None done What testing was considered but not performed or refused? (CT, X-rays, U/S, labs)? Why? @ -None What meds were considered but not given or refused? Why? @ -None Did you discuss the management of the patient with other professionals (professionals i.e. , PA, PSYCHOLOGIST DEVELOPMENTAL, lab, RT, psych nurse, social media assistant, ms sql dba, teacher, civil preparedness training officer, case monitor)? Give summary @ -Initially attempted to transfer the patient to [facility], however they are close to transfer. They do not have any beds available. Therefore we'll recheck out to [facility] for transfer. Spoke with Dr. Brooks at [facility] who accepted the transfer. Transfer team at the accepting facility spoke with the neurosurgeon who accepted the transfer. Was smoking cessation discussed for >3mins.? @ -No Was critical care preformed (if so, how long)? @ -Yes, 45 minutes Were there social determinants of health that impacted care today? How? (Homelessness, low income, unemployed, alcoholism, drug addiction, transportation, low edu. Level, literacy, decrease access to med. care, custodial, rehab)? @ -No Was there de-escalation of care discussed even if they declined (Discuss DNR or withdrawal of care, Hospice)? DNR status @ -No What co-morbidities impacted this encounter? (DM, HTN, Smoking, COPD, CAD, Cancer, CVA, ARF, Chemo, Hep., AIDS, mental health diagnosis, sleep apnea, morbid obesity)? @ -Seizure disorder, polysubstance abuse, alcohol abuse Was patient admitted / discharged? Hospital course, mention meds given and route, prescriptions, significant lab abnormalities, going to OR and other pertinent info. @ -Based on the patient's presentation and physical exam, presents following a seizure at home. Upon arrival to the emergency department had another seizure, generalized tonic-clonic movements lasting approximately 3 minutes. Neuro exam is difficult to obtain secondary to his current clinical status. GCS is curren tly 9-10. Vital signs within acceptable limits. During his second seizure, he did receive a dose of 2 mg IV Ativan. He also received 1500 mg IV push of Keppra. He'll receive IV fluids. We will obtain seizure laboratory studies, as well as CT brain and EKG. Vital signs are currently within acceptable limits. EKG showed no evidence of acute ischemic process. Patient's labs are remarkable for a anion gap metabolic acidosis likely secondary to lactic acidosis from seizure activity. Alcohol level is 53. Patient has an SHANON on CKD. Urine studies are pending. Elevated LFTs in the setting of alcohol abuse. Remainder the labs within except for limits. CT brain does reveal a small subdural hematoma on the right. On reevaluation at this time patient's blood pressures are somewhat soft fol lowing the Ativan administration, with systolics in the mid 90s. He will receive an additional fluid bolus due to his SHANON on CK D. Neuro exam is improved, with GCS of 13 at this time Opens Eyes to verbal command, verbal response is confused, and he obeys commands.. Does appear postictal at this time. He does require neurosurgery evaluation. Head of the bed will be maintained at 30. Patient receive a dose of TXA. He is not on any blood thinning medications and therefore does not require anticoagulation reversal. Patient currently is not hypertensive I will order Cardene drip for the EMS crew that we'll transfer the patient in the event that he does become hypertensive en route. Patient requires neurosurgery evaluation and I initially contacted [facility] who is closer transfer. I therefore recheck to [facility]. There was a delay in transfer, as [facility] transfer team to call back and stated that they initially spoke with the neurosurgery resident and the need to speak with the neurosurgery attending prior to accepting the patient. Neurosurgeon Dr. Alonzo accepted the patient. I spoke with Dr. Brooks in the ER who accepts the patient. Patient transferred in serious condition. After multiple fluid boluses, patient's blood pressures did improve systolics r anging between 95 and 100. GCS remains 13-14 at this time. He was in agreement with the plan for transfer. Undiagnosed new problem with uncertain prognosis? @ -No Drug Therapy requiring intensive monitoring for toxicity (Heparin, Nitro, [place], Cardizem)? @ -No Were any procedures done? @ -No Diagnosis/symptom? @ -Acute subdural hematoma Acute, or Chronic, or Acute on Chronic? @ -Acute Uncomplicated (without systemic symptoms) or Complicated (systemic symptoms)? @ -Complicated Side effects of treatment? @ -No Exacerbation, Progression, or Severe Exacerbation? @ -No Poses a threat to life or bodily function? How? (Chest pain, [place], [place], pneumonia, PE, COPD, DKA, ARF, appy, cholecystitis, CVA, Diverticulitis, Homicidal, Suicidal, threat to staff... and all critical care pts) @ -Yes Diagnosis/symptom? @ -Breakthrough seizure, Noncompliant with medications, history of alcohol abuse Acute, or Chronic, or Acute on Chronic? @ -Acute on chronic Uncomplicated (without systemic symptoms) or Complicated (systemic symptoms)? @ -Complicated Side effects of treatment? @ -none Exacerbation, Progression, or Severe Exacerbation] @ -no Poses a threat to life or bodily function? @ -Yes Diagnosis/symptom? @ -Dehydration, acute kidney injury Acute, or Chronic, or Acute on Chronic? @ -Acute Uncomplicated (without systemic symptoms) or Complicated (systemic symptoms)? @ -Complicated Side effects of treatment? @ -none Exacerbation, Progression, or Severe Exacerbation] @ -no Poses a threat to life or bodily function? @ -Yes - Lab Data Result diagrams: 04/17/23 21:05 04/17/23 21:05 Lab Results 04/17/23 04/17/23 04/17/23 Range/Units 20:54 21:05 21:05 WBC 13.9 H (3.8-10.6) k/uL RBC 5.13 (4.30-5.90) m/uL Hgb 15.6 (13.0-17.5) gm/dL Hct 52.8 (39.0-53.0) % MCV 102.9 H (80.0-100.0) fL MCH 30.4 (25.0-35.0) pg MCHC 29.5 L (31.0-37.0) g/dL RDW 12.7 (11.5-15.5) % Plt Count 276 (150-450) k/uL MPV 9.5 Neutrophils % (Manual) 20 % Lymphocytes % (Manual) 70 % Monocytes % (Manual) 2 % Eosinophils % (Manual) 8 % Neutrophils # (Manual) 2.78 (1.3-7.7) k/uL Lymphocytes # (Manual) 9.73 H (1.0-4.8) k/uL Monocytes # (Manual) 0.28 (0-1.0) k/uL Eosinophils # (Manual) 1.11 H (0-0.7) k/uL Nucleated RBCs 0 (0-0) /100 WBC Manual Slide Review Performed Hypochromasia Marked Macrocytosis Slight Sodium 147 H (137-145) mmol/L Potassium 4.9 (3.5-5.1) mmol/L Chloride 100 (98-107) mmol/L Carbon Dioxide <5 L* (22-30) mmol/L Anion Gap mmol/L BUN 14 (9-20) mg/dL Creatinine 2.56 H (0.66-1.25) mg/dL Est GFR (CKD-EPI)AfAm 32 (>60 ml/min/1.73 sqM) Est GFR (CKD-EPI)NonAf 28 (>60 ml/min/1.73 sqM) Glucose 152 H (74-99) mg/dL POC Glucose (mg/dL) 134 H (70-110) mg/dL POC Glu [place] Mixer Operator ID Christen, Nilesh Calcium 10.8 H (8.4-10.2) mg/dL Magnesium 3.7 H (1.6-2.3) mg/dL Total Bilirubin 0.9 (0.2-1.3) mg/dL AST 258 H (17-59) U/L ALT 100 H (4-49) U/L Alkaline Phosphatase 103 (38-126) U/L Total Protein 10.4 H (6.3-8.2) g/dL Albumin 5.8 H (3.5-5.0) g/dL Salicylates <1.0 mg/dL Acetaminophen <10.0 ug/mL Phenytoin <3.0 ug/mL Valproic Acid <10.0 ug/mL Carbamazepine <3.0 ug/mL [place] <0.2 mmol/L Serum Alcohol 53 mg/dL - EKG Data -: EKG Interpreted by Me EKG Comments: 12-lead Electrocardiogram Interpretation Note EKG was reviewed and interpreted by myself. 12-lead ECG performed at 2116 is interpreted by me as revealing normal sinus rhythm at a rate of 107 beats per minute. [place] is normal. NV intervals 137 ms, QRS duration is 88 ms, QTc is 373 ms.. There were no ST or T wave abnormalities to suggest myocardial ischemia or injury. R wave progression across the precordium was satisfactory. By my interpretation this EKG is non-diagnostic for acute ischemia. Critical Care Time Critical Care Time: Yes Total Critical Care Time: 45 Disposition Clinical Impression: Subdural hematoma, Seizure disorder, Nonadherence to medication, Polysubstance abuse, SHANON (acute kidney injury), Dehydration Disposition: OTHER INSTITUTION NOT DEFINED Condition: Serious Referrals: None,Stated [Primary Care Provider] - 1-2 days Time of Disposition: 23:00 - Out of Hospital Transfer - Req. Specs Out of Hospital Transfer - Requested Specifics: Other Emergency Center (Transfer to [facility] for neurosurgery evaluation in serious condition.)
[2023-04-18 00:10] VITALS: BP 102/54; PULSE 112; RESP 22
[2023-04-18] MEDS ORDERED: THIAMINE 100 MG TAB PO SCH (09:00)
== END 2023-04-18 00:11 | disposition other institution (70) ==
LOC: EC 20:35
DX: I62.01 Nontraumatic acute subdural hemorrhage (principal); R56.9 Unspecified convulsions; F19.10 Other psychoactive substance abuse, uncomplicated; Z91.148 Patient's other noncompliance with medication regimen for other reason; N17.9 Acute kidney failure, unspecified; E86.0 Dehydration; I10 Essential (primary) hypertension; F41.9 Anxiety disorder, unspecified; F32.A Depression, unspecified; F17.200 Nicotine dependence, unspecified, uncomplicated; Z88.8 Allergy status to other drugs, medicaments and biological substances; Z79.82 Long term (current) use of aspirin; Z79.899 Other long term (current) drug therapy
CPT/HCPCS: 36415; 93005; 80156; 80164; 80053; 80185; 80178; 83735; 85025; 80143; 80179; 70450; 99291; 96374; 96375 ×2; 96361 ×3; 96372; G0480; J2060; J3411; J1953; 80320

== ENCOUNTER 2024-09-08 12:54 | Emergency (ER) | payer OTHER ==
--- NOTE | 2024-09-08 15:38 | ED ---
General Adult HPI - General Chief complaint: Extremity Injury, Lower Stated complaint: Right knee pain Time Seen by Provider: 09/08/24 14:34 Source: patient, RN notes reviewed Mode of arrival: ambulatory Limitations: no limitations - History of Present Illness Initial comments: 53-year-old male presents to the emergency department for medication management. Patient reports that he has chronic right knee pain and is supposed to be on [place] and Ativan. Patient admits that he is supposed to have surgery but has yet to do so. He reports that he recently was able to get refills of his other medications but was unable to receive his [place] or Ativan. He is requesting refills on these medications today. Denies any new injury, redness, swelling, fever. - Related Data Home Medications Medication Instructions Recorded Confirmed Aspirin EC [Ecotrin Low Dose] 81 mg PO DAILY 06/06/22 06/06/22 Atorvastatin Calcium [Lipitor] 40 mg PO HS 06/06/22 06/06/22 Famotidine 20 mg PO BID 06/06/22 06/06/22 Folic Acid 1 mg PO DAILY 06/06/22 06/06/22 carvediloL [Coreg] 3.125 mg PO BID 06/06/22 06/06/22 lisinopriL [Zestril] 10 mg PO DAILY 06/06/22 06/06/22 Previous Rx's Medication Instructions Recorded Thiamine [Vitamin B-1] 100 mg PO DAILY tab 06/07/22 amLODIPine [Norvasc] 10 mg PO DAILY 30 Days #30 tab 06/07/22 levETIRAcetam [Keppra] 500 mg PO Q12HR 30 Days #60 tab 06/07/22 HYDROcodone/APAP 7.5-325MG [[place] 1 tab PO Q6HR PRN 1 Days #4 tab 09/08/24 7.5-325] Allergies Allergy/AdvReac Type Severity Reaction Status Date / Time bupropion HCl Allergy Anaphylaxis Verified 09/08/24 13:06 [From Wellbutrin] Review of Systems ROS Statement: Those systems with pertinent positive or pertinent negative responses have been documented in the HPI. ROS Other: All systems not noted in ROS Statement are negative. Past Medical History Past Medical History: Hypertension Additional Past Medical History / Comment(s): chronic pain History of Any Multi-Drug Resistant Organisms: None Reported Past Surgical History: No Surgical Hx Reported Additional Past Surgical History / Comment(s): circumscision at age 20, reconstructive surgery on right knee Past Anesthesia/Blood Transfusion Reactions: No Reported Reaction Past Psychological History: Anxiety, Depression, PTSD Smoking Status: Current every day smoker Past Alcohol Use History: Abuse, Daily Past Drug Use History: None Reported General Exam Limitations: no limitations General appearance: alert, in no apparent distress Head exam: Present: atraumatic, normocephalic, normal inspection Eye exam: Present: normal appearance, PERRL, EOMI. Absent: scleral icterus, conjunctival injection, periorbital swelling ENT exam: Present: normal exam, mucous membranes moist Neck exam: Present: normal inspection. Absent: tenderness, meningismus, lymphadenopathy Respiratory exam: Present: normal lung sounds bilaterally. Absent: respiratory distress, wheezes, rales, rhonchi, stridor Cardiovascular Exam: Present: regular rate, normal rhythm, normal heart sounds. Absent: systolic murmur, diastolic murmur, rubs, gallop, clicks Extremities exam: Present: full ROM, tenderness (anterior right knee), normal capillary refill. Absent: pedal edema, joint swelling, calf tenderness Neurological exam: Present: alert, oriented X3 Psychiatric exam: Present: normal affect, normal mood Skin exam: Present: warm, dry, intact, normal color. Absent: rash Course Vital Signs 09/08/24 09/08/24 13:06 15:53 Temperature 98.6 F 98.0 F Pulse Rate 116 H 61 Respiratory 18 17 Rate Blood Pressure 106/71 124/85 O2 Sat by Pulse 99 98 Oximetry Medical Decision Making - Medical Decision Making Was pt. sent in by a medical professional or institution (, PA, MRI SUPERVISOR, urgent care, hospital, or penitentiary...) When possible be specific @ -No Did you speak to anyone other than the patient for history (EMS, parent, family, police, friend...)? What history was obtained from this source @ -No Did you review nursing and triage notes (agree or disagree)? Why? @ -I reviewed and agree with nursing and triage notes Were old charts reviewed (outside hosp., previous admission, EMS record, old EKG, old radiological studies, urgent care reports/EKG's, penitentiary records)? Report findings @ -No old charts were reviewed Differential Diagnosis (chest pain, altered mental status, abdominal pain women, abdominal pain men, vaginal bleeding, weakness, fever, dyspnea, syncope, headache, dizziness, GI bleed, back pain, seizure, CVA, palpatations, mental health, musculoskeletal)? @ -Differential Musculoskeletal Muscular strain, contusion, ligament sprain, fracture, arthritis, septic arthritis, bursitis, cellulitis, muscle spasm, nerve compression, DVT, arterial occlusion, herpes zoster, electrolyte abnormality, tumor.... This is not meant to be in all inclusive list EKG interpreted by me (3pts min.). @ -None X-rays interpreted by me (1pt min.). @ -None done CT interpreted by me (1pt min.). @ -None done U/S interpreted by me (1pt. min.). @ -None done What testing was considered but not performed or refused? (CT, X-rays, U/S, labs)? Why? @ -X-rays considered, the patient reports that the symptoms are chronic without any changes What meds were considered but not given or refused? Why? @ -None Did you discuss the management of the patient with other professionals (professionals i.e. , PA, MRI SUPERVISOR, lab, RT, psych nurse, social problems specialist, burlap worker, teacher, digital controls technical officer, spring encaser)? Give summary @ -No Was smoking cessation discussed for >3mins.? @ -No Was critical care preformed (if so, how long)? @ -No Were there social determinants of health that impacted care today? How? (Homelessness, low income, unemployed, alcoholism, drug addiction, transportation, low edu. Level, literacy, decrease access to med. care, senior care, rehab)? @ -No Was there de-escalation of care discussed even if they declined (Discuss DNR or withdrawal of care, Hospice)? DNR status @ -No What co-morbidities impacted this encounter? (DM, HTN, Smoking, COPD, CAD, Cancer, CVA, ARF, Chemo, Hep., AIDS, mental health diagnosis, sleep apnea, mo rbid obesity)? @ -None Was patient admitted / discharged? Hospital course, mention meds given and route, prescriptions, significant lab abnormalities, going to OR and other pertinent info. @ -Discharge. Patient presented to the emergency department for medication management. Patient reports chronic symptoms to his right knee. No imaging was obtained as the symptoms remain unchanged. Patient requesting refills to his [place] and Ativan. Discussed that we can only do short-term refill in his medication in the ED. Advised him that he had to follow-up with a primary care provider for further management. He is understanding agreeable with this. Patient stable at time of discharge. Case discussed with Dr. Sauer Undiagnosed new problem with uncertain prognosis? @ -No Drug Therapy requiring intensive monitoring for toxicity (Heparin, Nitro, Insulin, Cardizem)? @ -No Were any procedures done? @ -No Diagnosis/symptom? @ -Chronic pain, medication management Acute, or Chronic, or Acute on Chronic? @ -Chronic Uncomplicated (without systemic symptoms) or Complicated (systemic symptoms)? @ -Uncomplicated Side effects of treatment? @ -No Exacerbation, Progression, or Severe Exacerbation? @ -No Poses a threat to life or bodily function? How? (Chest pain, [place], [place], pneumonia, PE, COPD, DKA, ARF, appy, cholecystitis, CVA, Diverticulitis, Homicidal, Suicidal, threat to staff... and all critical care pts) @ -No Disposition Clinical Impression: Chronic knee pain Disposition: HOME SELF-CARE Condition: Stable Instructions (If sedation given, give patient instructions): Knee Pain (ED) Additional Instructions: Please follow up with a primary care provider. Return to the emergency department for new or worsening symptoms. Prescriptions: HYDROcodone/APAP 7.5-325MG [[place] 7.5-325] 1 tab PO Q6HR PRN 1 Days #4 tab PRN Reason: Pain Is patient prescribed a controlled substance at d/c from ED?: Yes When asked, does pt state using other controlled substances?: No If prescribed controlled substance>3 days was MAPS reviewed?: Prescribed <3 Days Referrals: None,Stated [Primary Care Provider] - 1-2 days Joe Wynn MD [STAFF PHYSICIAN] - 1-2 days Forms: Area PCPs
[2024-09-08 16:00] VITALS: BP 124/85; PULSE 61; RESP 17; TEMP 98
== END 2024-09-08 16:00 | disposition home or self-care (01) ==
LOC: EC 12:54
DX: G89.29 Other chronic pain (principal); M25.561 Pain in right knee; F17.200 Nicotine dependence, unspecified, uncomplicated; Z88.8 Allergy status to other drugs, medicaments and biological substances
CPT/HCPCS: 99283